=== PATIENT | male | born 1950 | race Caucasian/White ===

== ENCOUNTER 2018-04-26 14:42 | Inpatient (IN) | payer MEDICARE, OTHER ==
[~2018-04-26] VITALS: Ht 180.3 cm; Wt 102.6 kg
--- NOTE | ~2018-04-26 | EC ---
PATIENT:ZARINA ANN DATE OF SERVICE: 04/26/18 SEX: M MEDICAL RECORD: [id number] DATE OF : [birth year] LOCATION:D.M2 D.212 AGE OF PATIENT: 67 ADMISSION DATE: 04/26/18 REFERRING PHYSICIAN: INTERPRETING PHYSICIAN: NIKKY ATKINSON MD ECHOCARDIOGRAM REPORT ECHO CHARGES 4 ECHO COMPLETE Date: 05/01 CLINICAL DIAGNOSIS: EVALUATE FOR VEGETATION ECHOCARDIOGRAPHIC MEASUREMENTS (adult normal given) AC root (d.<3.7cm) 3.5 cm LV Septum d (<1.2 cm> 1.1 cm Valve Excursion 1.2 cm LV Septum (systole) 1.5 cm Left Atria (s.<4.0cm> 3.2 cm LVPW d(<1.2cm) 1.4 cm RV (d.<2.3cm) 2.6 cm LVPW (sytole) 2.2 cm LV diastole(<5.6CM) 5.4 cm MV E-F(>70mm/sec) cm LV systole 3.8 cm LVOT Diameter 2.0 cm MV exc.(>10mm) cm Est.ejection fraction (50-75%) % DOPPLER: LVIT cm/sec A 91.0 cm/sec E 176.0 cm/sec LA cm/sec RVSP 43.0 mmHg LVOT 95.0 cm/sec AOP1/2T m/s Asc. Ao 108 cm/sec RVOT 80.0 cm/sec RA cm/sec PA 124 cm/sec AV Gradient Peak 4.6 mmHg AV Mean 1.8 mmHg AV Area 3.0 cm MV Gradient Peak 4.7 mmHg MV Mean 1.6 mmHg MV Area cm COMMENTS: And Rescue Fire Fighter Crash Fire: Beni LEYOE Asbestos Worker: 4 Dr. Atkinson TAPE# PACS Pericardial Effusion Y DATE OF SERVICE: PROCEDURE: Transthoracic echocardiogram. FINDINGS: 1. Left ventricle is hyperdynamic. LV function is normal at 65%. The patient does have a bundle branch block and there is asynchronous wall motion. Inflow characteristics have what appear to be a possible pseudonormalization. 2. The left atrium is normal size, shape, and function. 3. The mitral valve has moderate eccentric mitral regurgitation. Mitral valve ECHOCARDIOGRAM REPORT [id number] ZARINA ANN is not well seen. There is no obvious vegetations or mechanical disruption. 4. The aortic valve is difficult to visualize. Grossly normal. No significant evidence of stenosis. 5. The tricuspid valve has moderate tricuspid regurgitation. The RVSP is 40 to 45 mmHg. 6. The right ventricle is normal size, shape, and function. There is right ventricular hypertrophy. 7. The right atrium is mildly enlarged. 8. Interatrial septum is thinned with the possibility of an ASD or possibly a PFO, but also maybe there is a drop out in that area of the atrial septum. It is difficult to visualize. CONCLUSION: The patient has evidence of left ventricular hypertrophy, preserved hyperdynamic LV systolic function with asynchronous wall motion secondary to a bundle branch block with moderate both tricuspid and mitral regurgitation and borderline to mildly dilated left atrium with the possibility of an atrial septal defect versus a PFO in the right clinical situation. A MICHEL may be helpful for further evaluation. No obvious vegetations were seen on this report. TRANSINT:[id number] Voice Confirmation ID: [id number] DOCUMENT ID: [id number] NIKKY ATKINSON MD at 1435 CC: [id number] DICTATION DATE: 05/03/18 1104 MACHINE CANDLE MOLDER: 05/03/18 1127 ADM IN [facility] [address] [place] [address]
--- NOTE | ~2018-04-26 | MORECARE ---
CASE MANAGEMENT DISCHARGE SUMMARY PATIENT: ZARINA ANN UNIT: [id number] ADM DATE: 04/26/18 AGE: 67 : [birth year] SEX: M ROOM/BED: D.2124 AUTHOR: CASE, EXTRUSION DIE REPAIRER PHYSICIAN: REFERRING PHYSICIAN: MAIKEL WALTERS MD DATE OF SERVICE: 04/26/18 Discharge Plan Patient Name[facility]ARINA ANN [facility] [facility] 1950 Planned Disposition: Inpatient Rehab Anticipated Discharge Date: Discharge Date: Expected LOS: Initial Reviewer: [email or web address] Initial Review Date: 05/02/2018 Generated: 05/09/18 6:53 pm Coverage Notice Reviewer: [email or web address] Rebecca Ashby Notice Issued Date-Time: 05/09/2018 13:55 Notice Type: IM Discharge Notice Notice Delivered To: Patient Relationship to Patient: Slasher Sawyer Name: Delivery Method: HAND - Hand Delivered Jacinta Days: Prior Verbal Notification: Recipient Understood Notice: Yes Recipient Signature: Yes Med Rec Note Co-signed by Attending: Coverage Notice Comment: Patient Name: ZARINA ANN Page [phone] All edits/amendments must be made on the electronic document DICTATION DATE: 05/09/181751 MARINA PORTER: 05/09/181751 RPT#: [id number] DC DATE: STATUS: ADM IN [facility] [address] [place] [address] END OF REPORT
--- NOTE | ~2018-04-26 | PN ---
PATIENT:ZARINA ANN MEDICAL RECORD: [id number] [facility] ADMISSION DATE: 04/26/18 PROGRESS NOTE DATE OF SERVICE: 05/15/2018 SUBJECTIVE: This is a 67-year-old man who was admitted to the Emergency Room for abdominal pain. He has been a chronic laxative abuser. He was also noted to have respiratory distress with coughing and he was found to have bilateral pneumonia. Of note, the patient has Parkinson's disease. The patient's abdominal pain persists and had about 3 bowel movements today. The patient's breathing is improved. There is no coughing. There is no fever. PHYSICAL EXAMINATION: GENERAL: Reveals morbidly obese man, who is in no acute distress. VITAL SIGNS: Temperature 97.9, heart rate of 79, blood pressure 118/61, saturation 97% on room air. SHEENT: Unremarkable. NECK: Supple. No throat pain. There is no tenderness. CHEST: Clear. Good airflow bilaterally. CARDIAC: Shows no jugular venous distention, murmur, or gallop. ABDOMEN: Soft and mildly tender with guarding. No rebound. Lab exam showed white count of 4.5, hemoglobin 8.8, platelet count was 183,000. Chemistries remarkable for creatinine 1.8. Chest x-ray showed persistent vascular congestion with interval improvement of bibasilar airspace disease. ASSESSMENT: 1. Pneumonia, possibly aspiration. 2. Abdominal pain, probably secondary to laxative abuse. 3. Morbid obesity. PLAN: Acidophilus orally. Continue DVT prophylaxis. Continue bronchodilators. TRANSINT:[id number] Voice Confirmation ID: [id number] DOCUMENT ID: [id number] ROMEO MERCHANT at 1307 CC: [id number] DICTATION DATE: 05/15/18 1636 COOLER DELIVERER: 05/15/18 1950 DIS IN 05/15/18 [facility] [address] [place] [address]
--- NOTE | ~2018-04-26 | CN ---
PATIENT NAME:ZARINA ANN MEDICAL RECORD: [id number] : [birth year] LOCATION:[facility].2124 ADMIT DATE: 04/26/18 ACCOUNT: [id number] CONSULTING PHYSICIAN: ROMEO MERCHANT REFERRING PHYSICIAN: MAIKEL WALTERS MD DATE OF CONSULTATION: 05/14/2018 HISTORY OF PRESENT ILLNESS: This is a 67-year-old obese man who was admitted for abdominal pain as well as coughing, some shortness of breath. The patient at times feels like she is choking. There is no fever or chills. No orthopnea or PND. No cardiac disease. On chest x-ray, the patient was found to have bilateral pneumonia and has been on antibiotics. Still has diffuse abdominal discomfort. There is no obstipation. PAST MEDICAL HISTORY: Remarkable for Parkinson disease, coronary artery stent and angioplasty. She has acid reflux disease. PAST SURGICAL HISTORY: Includes right shoulder repair. ALLERGIES: PENICILLIN. MEDICATIONS: On the patient include, Eliquis 2.5 mg t.i.d., potassium 20 mEq b.i.d., oxycodone 10 mg b.i.d., allopurinol 100 mg daily, Lipitor 10 mg at bedtime, Colace 100 mg b.i.d., polyethylene glycol 17 grams p.o. b.i.d., Flomax 0.4 mg at bedtime, Nystatin powder topical t.i.d., lisinopril 10 mg daily, amlodipine 5 mg daily, cefepime 2 grams q. 12 hours, Humulin R subQ a.c. and at bedtime. FAMILY HISTORY: Unremarkable. SOCIAL HISTORY: The patient never smoked. REVIEW OF SYSTEMS: GENERAL: The patient denies any fever or chills. HEENT: There is no headache, nasal drainage, or sore throat. CARDIOPULMONARY. The patient denies any orthopnea or PND. There is no sputum production but occasionally choking sensation. GASTROINTESTINAL: The patient has abdominal pain. No nausea or vomiting. MUSCULOSKELETAL: The patient denies any joint pains. PHYSICAL EXAMINATION: GENERAL: Physical exam reveals an obese man who in no acute distress. VITAL SIGNS: Her temperature 97.5, heart rate 71, respiratory rate 19, blood pressure 141/70, and saturation is 98%. SHEENT: Unremarkable. Nares normal. CHEST: Exam shows some coarse crackles and coughing with occasional wheeze. HEART: Exam shows no jugular venous distention, no murmur or gallop. ABDOMEN: Soft, mild diffuse tenderness with mild guarding with no rebound. EXTREMITIES: Show no clubbing, cyanosis or edema. LABORATORY DATA: CBC: White count 4.1, hemoglobin 8.9. Platelet count is 195,000. Chemistries remarkable for sodium 132, potassium 4.3, creatinine is 1.7, BUN is 32. CONSULT REPORT [id number] ZARINA ANN Chest x-ray showed increased bibasilar airspace disease with the right being worse than the left, some layering of the pleural effusion. IMPRESSION: 1. Pneumonia, parapneumonic effusion. Probably secondary to aspiration, she has mucus plugging. 2. Abdominal pain, etiology unclear. 3. Laxative abuse. 4. Diabetes mellitus type 2. 5. Morbid obesity. PLAN: 1. Empiric antibiotics. 2. Bronchodilators. 3. Mucolytics with Mucinex. If no still improvement, the patient may need Mucomyst. TRANSINT:[id number] Voice Confirmation ID: [id number] DOCUMENT ID: [id number] ROMEO MERCHANT at 1307 CC: [id number] DICTATION DATE: 05/14/182204 HAT BRIM CURLER: 05/15/18813 DIS IN 05/15/18 [facility] [address] [place] [address]
[2018-04-26 20:00] VITALS: BP 141/72
[2018-04-27] VITALS (7 sets, daily range): BP systolic 121–167; BP diastolic 57–83; BMI 45.4
[2018-04-27 06:32] LABS: BASOPHILS 0.1 % (0-2); EOSINOPHILS 3.8 % (0-7); HEMATOCRIT 29.6 % (42.0-54.0); HEMOGLOBIN 9.7 g/dL (13.5-17.5); IMMATURE GRANULOCYTES 0.1 % (0-5); LYMPHOCYTES 10.5 % (15-50); MCH 29.8 pg (26.0-34.0); MCHC 32.8 g/dL (31.0-37.0); MCV 90.8 fL (80.0-100.0); MEAN PLATELET VOLUME 9.2 fL (7.4-10.4); MONOCYTES 13.9 % (2-11); NEUTROPHILS 71.6 % (40-80); PLATELET COUNT 190 10x3/uL (130-400); RBC 3.26 10x6/uL (4.20-6.10); RDW 15.4 % (11.5-14.5); WBC 7.1 10x3/uL (4.8-10.8)
[2018-04-27 06:48] LABS: INR 1.36 (0.85-1.17); PROTIME 16.4 SECONDS (11.6-15.0)
[2018-04-27 06:55] LABS: ALBUMIN 2.3 g/dL (3.4-5.0); ANION GAP 7.5 mmol/L (8-16); BILIRUBIN - TOTAL 0.76 mg/dL (0.2-1.3); CALCIUM 9.4 mg/dL (8.5-10.1); CARBON DIOXIDE 31.3 mmol/L (21.0-32.0); CREATININE - SERUM 2.1 mg/dL (0.6-1.3); POTASSIUM - SERUM 3.8 mmol/L (3.5-5.1); PROTEIN - SERUM 6.3 g/dL (6.4-8.2)
[2018-04-27] MEDS ORDERED: ELIQUIS2.5 MG PO (13:49)
[2018-04-27] MEDS ORDERED: K-DUR20 MEQ PO (13:50)
[2018-04-27] MEDS ORDERED: OXYCONTIN10 MG PO (13:50)
[2018-04-27] MEDS ORDERED: ZYLOPRIM100 MG PO (13:51)
[2018-04-27] MEDS ORDERED: COLACE100 MG PO (13:51)
[2018-04-27] MEDS ORDERED: LIPITOR40 MG PO (13:51)
[2018-04-27] MEDS ORDERED: FOLIC ACID1 MG PO (13:52)
[2018-04-27] MEDS ORDERED: FUROSEMIDE20 MG PO (13:52)
[2018-04-27] MEDS ORDERED: NUTRISOURCE FI1 EACH PO (13:53)
[2018-04-27] MEDS ORDERED: MIRALAX17 GM PO (13:53)
[2018-04-27] MEDS ORDERED: FLOMAX0.4 MG PO (13:56)
[2018-04-27] MEDS ORDERED: SINEMET 25-1001 EACH PO (13:57)
[2018-04-27] MEDS ORDERED: LISINOPRIL10 MG PO (13:58)
[2018-04-27] MEDS ORDERED: NORVASC5 MG PO (13:58)
[2018-04-27] MEDS ORDERED: NYSTATIN1 PWD TOPICAL (13:58)
[2018-04-27] MEDS ORDERED: LEXAPRO10 MG PO (13:59)
[2018-04-27] MEDS ORDERED: MAXIPIME 2 GM/D52 G1 IV (13:59)
[2018-04-27] MEDS ORDERED: VANCOMYCIN 750750 MG IV (14:00)
[2018-04-27] MEDS ORDERED: HUMULIN R100 U/ML SC (14:02)
[2018-04-27 14:11] LABS: % SATURATION 16 % (15-55); IRON 41 ug/dl (35-150); TOTAL IRON BIND CAPACITY 250 ug/dl (260-445); UNSAT IRON BIND CAPACITY 209 ug/dl (150-375)
[2018-04-27 15:52] LABS: APPEARANCE CLOUDY (CLEAR); BILIRUBIN NEGATIVE (NEGATIVE); COLOR YELLOW (YELLOW); GLUCOSE NEGATIVE (NEGATIVE); KETONE NEGATIVE (NEGATIVE); NITRITE NEGATIVE (NEGATIVE); PH 6.5 (5.0-6.0); PROTEIN 2+ mg/dL (NEGATIVE); UROBILINOGEN NORMAL (NORMAL)
[2018-04-27 15:56] LABS: BACTERIA MODERATE /hpf (NONE SEEN); EPITHELIAL CELLS OCC /hpf (0-5); HYALINE CAST OCC /lpf (NONE SEEN); RED CELLS - URINE 0-5 /hpf (0-5)
[2018-04-27 15:57] LABS: YEAST >1+ WITH HYPHAE /hpf (NONE SEEN)
[2018-04-28 04:30] VITALS: BP 146/81
[2018-04-28 05:27] LABS: BASOPHILS 0.3 % (0-2); HEMATOCRIT 31.2 % (42.0-54.0); HEMOGLOBIN 10.1 g/dL (13.5-17.5); IMMATURE GRANULOCYTES 0.1 % (0-5); LYMPHOCYTES 14.2 % (15-50); MCH 29.5 pg (26.0-34.0); MCHC 32.4 g/dL (31.0-37.0); MCV 91.2 fL (80.0-100.0); MONOCYTES 12.9 % (2-11); NEUTROPHILS 66.5 % (40-80); PLATELET COUNT 228 10x3/uL (130-400); RBC 3.42 10x6/uL (4.20-6.10); RDW 15.4 % (11.5-14.5); WBC 7.7 10x3/uL (4.8-10.8)
[2018-04-28 05:39] LABS: ANION GAP 6.5 mmol/L (8-16); CALCIUM 9.1 mg/dL (8.5-10.1); CARBON DIOXIDE 33.3 mmol/L (21.0-32.0); CREATININE - SERUM 1.9 mg/dL (0.6-1.3); POTASSIUM - SERUM 3.8 mmol/L (3.5-5.1)
[2018-04-28 08:57] VITALS: BP 128/80
[2018-04-28 16:08] VITALS: BP 127/62
[2018-04-28 20:00] VITALS: BP 141/84
[2018-04-29] VITALS: BP 145/67
[2018-04-29 04:00] VITALS: BP 155/69
[2018-04-29 05:31] LABS: BASOPHILS 0.2 % (0-2); EOSINOPHILS 6.8 % (0-7); HEMATOCRIT 29.3 % (42.0-54.0); HEMOGLOBIN 9.4 g/dL (13.5-17.5); IMMATURE GRANULOCYTES 0.2 % (0-5); LYMPHOCYTES 9.8 % (15-50); MCH 29.2 pg (26.0-34.0); MCHC 32.1 g/dL (31.0-37.0); MEAN PLATELET VOLUME 9.3 fL (7.4-10.4); MONOCYTES 16.5 % (2-11); NEUTROPHILS 66.5 % (40-80); PLATELET COUNT 184 10x3/uL (130-400); RBC 3.22 10x6/uL (4.20-6.10); RDW 15.2 % (11.5-14.5); WBC 6.3 10x3/uL (4.8-10.8)
[2018-04-29 05:52] LABS: ANION GAP 5.7 mmol/L (8-16); CALCIUM 8.7 mg/dL (8.5-10.1); CREATININE - SERUM 1.9 mg/dL (0.6-1.3); POTASSIUM - SERUM 3.7 mmol/L (3.5-5.1)
[2018-04-29 08:54] VITALS: BP 119/66
[2018-04-29 12:01] VITALS: BP 144/60
[2018-04-29 14:58] VITALS: BP 140/67
[2018-04-29 20:48] VITALS: BP 141/67
[2018-04-30 06:04] LABS: BASOPHILS 0.1 % (0-2); EOSINOPHILS 7.1 % (0-7); HEMATOCRIT 30.1 % (42.0-54.0); HEMOGLOBIN 9.7 g/dL (13.5-17.5); IMMATURE GRANULOCYTES 0.4 % (0-5); LYMPHOCYTES 12.9 % (15-50); MCH 29.2 pg (26.0-34.0); MCHC 32.2 g/dL (31.0-37.0); MCV 90.7 fL (80.0-100.0); MEAN PLATELET VOLUME 9.1 fL (7.4-10.4); MONOCYTES 14.4 % (2-11); NEUTROPHILS 65.1 % (40-80); PLATELET COUNT 155 10x3/uL (130-400); RBC 3.32 10x6/uL (4.20-6.10); RDW 15.1 % (11.5-14.5); WBC 6.9 10x3/uL (4.8-10.8)
[2018-04-30 06:23] LABS: ANION GAP 3.6 mmol/L (8-16); CALCIUM 8.9 mg/dL (8.5-10.1); CARBON DIOXIDE 32.3 mmol/L (21.0-32.0); POTASSIUM - SERUM 3.9 mmol/L (3.5-5.1)
[2018-04-30 06:57] VITALS: BP 177/75
[2018-04-30 08:03] VITALS: BP 138/76
[2018-04-30 09:19] LABS: FOLATE (FOLIC ACID) - SERUM >20.0 ng/mL (>3.0)
[2018-04-30 11:20] VITALS: BP 122/68
[2018-04-30 15:22] VITALS: BP 133/66
[2018-04-30 20:10] VITALS: BP 143/78
[2018-05-01 01:10] VITALS: BP 174/77
[2018-05-01 05:20] VITALS: BP 148/75
[2018-05-01 08:10] LABS: BASOPHILS 0.1 % (0-2); EOSINOPHILS 7.9 % (0-7); HEMATOCRIT 30.2 % (42.0-54.0); HEMOGLOBIN 9.8 g/dL (13.5-17.5); IMMATURE GRANULOCYTES 0.4 % (0-5); LYMPHOCYTES 9.5 % (15-50); MCH 29.4 pg (26.0-34.0); MCHC 32.5 g/dL (31.0-37.0); MCV 90.7 fL (80.0-100.0); MEAN PLATELET VOLUME 9.1 fL (7.4-10.4); MONOCYTES 12.1 % (2-11); RBC 3.33 10x6/uL (4.20-6.10); WBC 7.5 10x3/uL (4.8-10.8)
[2018-05-01 08:15] VITALS: BP 143/72
[2018-05-01 08:16] LABS: PLATELET COUNT 203 10x3/uL (130-400)
[2018-05-01 08:31] LABS: ANION GAP 7.9 mmol/L (8-16); CALCIUM 8.8 mg/dL (8.5-10.1); CREATININE - SERUM 1.7 mg/dL (0.6-1.3); POTASSIUM - SERUM 3.9 mmol/L (3.5-5.1)
[2018-05-01 11:36] VITALS: BP 151/69
[2018-05-01 15:56] VITALS: BP 148/63
[2018-05-01 21:52] VITALS: BP 132/73
[2018-05-02 01:17] VITALS: BP 147/75
[2018-05-02 04:00] VITALS: BP 147/78
[2018-05-02 06:06] LABS: BASOPHILS 0.4 % (0-2); EOSINOPHILS 10.6 % (0-7); HEMATOCRIT 31.5 % (42.0-54.0); HEMOGLOBIN 10.2 g/dL (13.5-17.5); IMMATURE GRANULOCYTES 0.4 % (0-5); LYMPHOCYTES 10.5 % (15-50); MCH 29.3 pg (26.0-34.0); MCHC 32.4 g/dL (31.0-37.0); MCV 90.5 fL (80.0-100.0); MEAN PLATELET VOLUME 8.8 fL (7.4-10.4); MONOCYTES 10.2 % (2-11); NEUTROPHILS 67.9 % (40-80); PLATELET COUNT 195 10x3/uL (130-400); RBC 3.48 10x6/uL (4.20-6.10); RDW 15.2 % (11.5-14.5); WBC 7.7 10x3/uL (4.8-10.8)
[2018-05-02 06:24] LABS: ANION GAP 10.3 mmol/L (8-16); CALCIUM 9.2 mg/dL (8.5-10.1); CARBON DIOXIDE 27.4 mmol/L (21.0-32.0); CREATININE - SERUM 1.7 mg/dL (0.6-1.3); POTASSIUM - SERUM 3.7 mmol/L (3.5-5.1)
[2018-05-02 06:37] LABS: AMYLASE - SERUM 37 U/L (25-115); LIPASE 259 U/L (73-393)
[2018-05-02 08:22] VITALS: BP 158/81
[2018-05-02 15:57] VITALS: BP 115/66
[2018-05-02 21:32] VITALS: BP 136/75
[2018-05-03 01:30] VITALS: BP 136/76
[2018-05-03 06:03] VITALS: BP 143/69
[2018-05-03 08:26] VITALS: BP 128/56
[2018-05-03 12:27] VITALS: BP 149/73
[2018-05-03 12:30] LABS: BASOPHILS 0.3 % (0-2); EOSINOPHILS 10.7 % (0-7); HEMATOCRIT 32.8 % (42.0-54.0); HEMOGLOBIN 10.4 g/dL (13.5-17.5); IMMATURE GRANULOCYTES 0.2 % (0-5); LYMPHOCYTES 8.7 % (15-50); MCH 29.6 pg (26.0-34.0); MCHC 31.7 g/dL (31.0-37.0); MEAN PLATELET VOLUME 9.4 fL (7.4-10.4); MONOCYTES 11.5 % (2-11); NEUTROPHILS 68.6 % (40-80); RBC 3.51 10x6/uL (4.20-6.10); RDW 15.2 % (11.5-14.5); WBC 8.8 10x3/uL (4.8-10.8)
[2018-05-03 12:39] LABS: ALBUMIN 2.5 g/dL (3.4-5.0); ANION GAP 5.9 mmol/L (8-16); BILIRUBIN - TOTAL 0.79 mg/dL (0.2-1.3); CALCIUM 9.1 mg/dL (8.5-10.1); CREATININE - SERUM 1.6 mg/dL (0.6-1.3); POTASSIUM - SERUM 3.9 mmol/L (3.5-5.1); PROTEIN - SERUM 6.7 g/dL (6.4-8.2)
[2018-05-03 12:42] LABS: MCV 93.4 fL (80.0-100.0); PLATELET COUNT 236 10x3/uL (130-400)
[2018-05-03 16:40] VITALS: BP 138/67
[2018-05-03 21:17] VITALS: BP 141/73
[2018-05-04 01:26] VITALS: BP 141/77
[2018-05-04 05:39] VITALS: BP 148/78
[2018-05-04 08:00] VITALS: BP 138/94
[2018-05-04 08:57] VITALS: BP 148/61
[2018-05-04 11:51] VITALS: BP 136/69
[2018-05-04 15:51] VITALS: BP 132/76
[2018-05-05] VITALS: BP 142/75
[2018-05-05 04:00] VITALS: BP 138/77
[2018-05-05 06:25] LABS: BASOPHILS 0.3 % (0-2); EOSINOPHILS 8.8 % (0-7); HEMATOCRIT 31.6 % (42.0-54.0); HEMOGLOBIN 10.4 g/dL (13.5-17.5); IMMATURE GRANULOCYTES 0.3 % (0-5); LYMPHOCYTES 15.5 % (15-50); MCH 29.5 pg (26.0-34.0); MCHC 32.9 g/dL (31.0-37.0); MCV 89.5 fL (80.0-100.0); MEAN PLATELET VOLUME 9.2 fL (7.4-10.4); MONOCYTES 10.8 % (2-11); NEUTROPHILS 64.3 % (40-80); PLATELET COUNT 205 10x3/uL (130-400); RBC 3.53 10x6/uL (4.20-6.10); RDW 14.6 % (11.5-14.5); WBC 6.8 10x3/uL (4.8-10.8)
[2018-05-05 06:41] LABS: ANION GAP 8.5 mmol/L (8-16); CALCIUM 9.1 mg/dL (8.5-10.1); CREATININE - SERUM 1.7 mg/dL (0.6-1.3); POTASSIUM - SERUM 3.5 mmol/L (3.5-5.1)
[2018-05-05 08:05] VITALS: BP 122/64
[2018-05-05 11:18] VITALS: BP 126/69
[2018-05-05 15:14] VITALS: BP 119/71
[2018-05-05 20:30] VITALS: BP 120/74
[2018-05-06 00:30] VITALS: BP 118/70
[2018-05-06 04:30] VITALS: BP 153/79
[2018-05-06 04:38] LABS: BASOPHILS 0.2 % (0-2); HEMATOCRIT 29.3 % (42.0-54.0); HEMOGLOBIN 9.5 g/dL (13.5-17.5); IMMATURE GRANULOCYTES 0.3 % (0-5); MCH 29.1 pg (26.0-34.0); MCHC 32.4 g/dL (31.0-37.0); MCV 89.6 fL (80.0-100.0); MEAN PLATELET VOLUME 8.7 fL (7.4-10.4); MONOCYTES 10.7 % (2-11); NEUTROPHILS 62.8 % (40-80); PLATELET COUNT 192 10x3/uL (130-400); RBC 3.27 10x6/uL (4.20-6.10); RDW 14.7 % (11.5-14.5); WBC 5.9 10x3/uL (4.8-10.8)
[2018-05-06 04:58] LABS: ANION GAP 5.3 mmol/L (8-16); CALCIUM 8.9 mg/dL (8.5-10.1); CARBON DIOXIDE 31.2 mmol/L (21.0-32.0); CREATININE - SERUM 1.6 mg/dL (0.6-1.3); POTASSIUM - SERUM 3.5 mmol/L (3.5-5.1)
[2018-05-06 08:46] VITALS: BP 149/80
[2018-05-06 11:45] VITALS: BP 148/80
[2018-05-06 15:59] VITALS: BP 145/81
[2018-05-06 20:00] VITALS: BP 142/78
[2018-05-07] VITALS: BP 153/86
[2018-05-07 06:00] LABS: BASOPHILS 0.4 % (0-2); EOSINOPHILS 10.6 % (0-7); HEMATOCRIT 31.2 % (42.0-54.0); HEMOGLOBIN 10.1 g/dL (13.5-17.5); IMMATURE GRANULOCYTES 0.2 % (0-5); LYMPHOCYTES 18.9 % (15-50); MCH 28.7 pg (26.0-34.0); MCHC 32.4 g/dL (31.0-37.0); MCV 88.6 fL (80.0-100.0); MONOCYTES 10.7 % (2-11); NEUTROPHILS 59.2 % (40-80); PLATELET COUNT 199 10x3/uL (130-400); RBC 3.52 10x6/uL (4.20-6.10); RDW 14.4 % (11.5-14.5); WBC 5.5 10x3/uL (4.8-10.8)
[2018-05-07 06:18] LABS: ANION GAP 6.5 mmol/L (8-16); CALCIUM 8.8 mg/dL (8.5-10.1); CARBON DIOXIDE 30.9 mmol/L (21.0-32.0); CREATININE - SERUM 1.5 mg/dL (0.6-1.3); POTASSIUM - SERUM 3.4 mmol/L (3.5-5.1)
[2018-05-07 06:37] VITALS: BP 144/72
[2018-05-07 07:30] VITALS: BP 143/81
[2018-05-07 11:00] VITALS: BP 135/81
[2018-05-07 14:04] VITALS: Ht 180.3 cm; Wt 102.6 kg
[2018-05-07 15:47] VITALS: BP 136/73
[2018-05-07 20:00] VITALS: BP 126/70
[2018-05-08] VITALS: BP 137/76
[2018-05-08 04:00] VITALS: BP 143/82
[2018-05-08 05:44] LABS: BASOPHILS 0.2 % (0-2); EOSINOPHILS 11.2 % (0-7); HEMATOCRIT 30.4 % (42.0-54.0); HEMOGLOBIN 9.9 g/dL (13.5-17.5); IMMATURE GRANULOCYTES 0.5 % (0-5); LYMPHOCYTES 15.7 % (15-50); MCH 28.9 pg (26.0-34.0); MCHC 32.6 g/dL (31.0-37.0); MCV 88.9 fL (80.0-100.0); NEUTROPHILS 62.4 % (40-80); PLATELET COUNT 204 10x3/uL (130-400); RBC 3.42 10x6/uL (4.20-6.10); RDW 14.6 % (11.5-14.5); WBC 6.4 10x3/uL (4.8-10.8)
[2018-05-08 05:50] LABS: ANION GAP 7.6 mmol/L (8-16); CALCIUM 8.7 mg/dL (8.5-10.1); CREATININE - SERUM 1.6 mg/dL (0.6-1.3); POTASSIUM - SERUM 3.6 mmol/L (3.5-5.1)
[2018-05-08 07:57] VITALS: BP 129/71
[2018-05-08 20:06] VITALS: BP 147/72
[2018-05-09] VITALS: BP 133/73
[2018-05-09 04:00] VITALS: BP 143/78
[2018-05-09 06:19] LABS: BASOPHILS 0.2 % (0-2); EOSINOPHILS 8.5 % (0-7); HEMATOCRIT 31.8 % (42.0-54.0); HEMOGLOBIN 10.3 g/dL (13.5-17.5); IMMATURE GRANULOCYTES 0.2 % (0-5); LYMPHOCYTES 15.9 % (15-50); MCH 28.9 pg (26.0-34.0); MCHC 32.4 g/dL (31.0-37.0); MCV 89.1 fL (80.0-100.0); MEAN PLATELET VOLUME 9.1 fL (7.4-10.4); MONOCYTES 11.9 % (2-11); NEUTROPHILS 63.3 % (40-80); PLATELET COUNT 218 10x3/uL (130-400); RBC 3.57 10x6/uL (4.20-6.10); RDW 14.7 % (11.5-14.5); WBC 5.8 10x3/uL (4.8-10.8)
[2018-05-09 06:36] LABS: CALCIUM 8.7 mg/dL (8.5-10.1); CREATININE - SERUM 1.7 mg/dL (0.6-1.3)
[2018-05-09 07:43] VITALS: BP 148/86
[2018-05-09 11:40] VITALS: BP 151/73
[2018-05-09 15:53] VITALS: BP 146/78
[2018-05-09 20:33] VITALS: BP 135/77
[2018-05-10] VITALS: BP 134/69
[2018-05-10 05:36] VITALS: BP 137/70
[2018-05-10 05:57] LABS: BASOPHILS 0.4 % (0-2); EOSINOPHILS 5.4 % (0-7); HEMATOCRIT 31.1 % (42.0-54.0); HEMOGLOBIN 10.1 g/dL (13.5-17.5); IMMATURE GRANULOCYTES 0.3 % (0-5); LYMPHOCYTES 14.7 % (15-50); MCH 28.9 pg (26.0-34.0); MCHC 32.5 g/dL (31.0-37.0); MCV 88.9 fL (80.0-100.0); MEAN PLATELET VOLUME 9.2 fL (7.4-10.4); MONOCYTES 12.3 % (2-11); NEUTROPHILS 66.9 % (40-80); PLATELET COUNT 212 10x3/uL (130-400); RDW 14.8 % (11.5-14.5)
[2018-05-10 06:03] LABS: WBC 7.5 10x3/uL (4.8-10.8)
[2018-05-10 06:24] LABS: ANION GAP 11.2 mmol/L (8-16); CALCIUM 8.9 mg/dL (8.5-10.1); CARBON DIOXIDE 29.8 mmol/L (21.0-32.0); CREATININE - SERUM 1.7 mg/dL (0.6-1.3)
[2018-05-10 07:50] VITALS: BP 149/66
[2018-05-10 11:12] VITALS: BP 152/63
[2018-05-10 16:09] VITALS: BP 144/66
[2018-05-10 20:00] VITALS: BP 126/69
[2018-05-11] VITALS: BP 133/68
[2018-05-11 04:00] VITALS: BP 136/76
[2018-05-11 05:36] LABS: BASOPHILS 0.1 % (0-2); EOSINOPHILS 5.1 % (0-7); HEMATOCRIT 29.6 % (42.0-54.0); HEMOGLOBIN 9.6 g/dL (13.5-17.5); IMMATURE GRANULOCYTES 0.3 % (0-5); LYMPHOCYTES 14.9 % (15-50); MCH 28.8 pg (26.0-34.0); MCHC 32.4 g/dL (31.0-37.0); MCV 88.9 fL (80.0-100.0); MEAN PLATELET VOLUME 8.7 fL (7.4-10.4); MONOCYTES 12.5 % (2-11); NEUTROPHILS 67.1 % (40-80); PLATELET COUNT 191 10x3/uL (130-400); RBC 3.33 10x6/uL (4.20-6.10); RDW 14.7 % (11.5-14.5); WBC 7.9 10x3/uL (4.8-10.8)
[2018-05-11 06:19] LABS: ANION GAP 8.6 mmol/L (8-16); CALCIUM 8.8 mg/dL (8.5-10.1); CARBON DIOXIDE 31.5 mmol/L (21.0-32.0); CREATININE - SERUM 1.7 mg/dL (0.6-1.3); POTASSIUM - SERUM 4.1 mmol/L (3.5-5.1)
[2018-05-11 07:44] VITALS: BP 126/69
[2018-05-11 11:23] VITALS: BP 125/67
[2018-05-11 14:56] VITALS: BP 129/74
[2018-05-11 20:30] VITALS: BP 126/73
[2018-05-12 04:30] VITALS: BP 133/95
[2018-05-12 05:50] LABS: BASOPHILS 0.1 % (0-2); EOSINOPHILS 6.8 % (0-7); HEMATOCRIT 28.3 % (42.0-54.0); HEMOGLOBIN 9.2 g/dL (13.5-17.5); IMMATURE GRANULOCYTES 0.4 % (0-5); LYMPHOCYTES 15.6 % (15-50); MCHC 32.5 g/dL (31.0-37.0); MCV 89.3 fL (80.0-100.0); MEAN PLATELET VOLUME 8.8 fL (7.4-10.4); MONOCYTES 13.2 % (2-11); NEUTROPHILS 63.9 % (40-80); PLATELET COUNT 204 10x3/uL (130-400); RBC 3.17 10x6/uL (4.20-6.10); RDW 14.7 % (11.5-14.5); WBC 6.9 10x3/uL (4.8-10.8)
[2018-05-12 06:05] LABS: ANION GAP 9.3 mmol/L (8-16); CALCIUM 8.8 mg/dL (8.5-10.1); CARBON DIOXIDE 30.7 mmol/L (21.0-32.0); CREATININE - SERUM 1.8 mg/dL (0.6-1.3)
[2018-05-12 07:55] VITALS: BP 132/76
[2018-05-12 11:33] VITALS: BP 126/75
[2018-05-12 15:30] VITALS: BP 121/66
[2018-05-12 21:54] VITALS: BP 99/69
[2018-05-13 02:13] VITALS: BP 124/69
[2018-05-13 05:26] VITALS: BP 125/67
[2018-05-13 05:58] LABS: BASOPHILS 0.3 % (0-2); EOSINOPHILS 3.8 % (0-7); HEMATOCRIT 27.4 % (42.0-54.0); HEMOGLOBIN 8.9 g/dL (13.5-17.5); IMMATURE GRANULOCYTES 0.2 % (0-5); LYMPHOCYTES 12.6 % (15-50); MCHC 32.5 g/dL (31.0-37.0); MCV 89.3 fL (80.0-100.0); MONOCYTES 12.6 % (2-11); NEUTROPHILS 70.5 % (40-80); PLATELET COUNT 210 10x3/uL (130-400); RBC 3.07 10x6/uL (4.20-6.10); WBC 6.3 10x3/uL (4.8-10.8)
[2018-05-13 06:40] LABS: ANION GAP 10.1 mmol/L (8-16); CALCIUM 8.8 mg/dL (8.5-10.1); CARBON DIOXIDE 28.2 mmol/L (21.0-32.0); CREATININE - SERUM 1.8 mg/dL (0.6-1.3); POTASSIUM - SERUM 4.3 mmol/L (3.5-5.1)
[2018-05-13 20:05] VITALS: BP 138/80
[2018-05-14 02:55] LABS: APPEARANCE CLEAR (CLEAR); BILIRUBIN NEGATIVE (NEGATIVE); COLOR YELLOW (YELLOW); GLUCOSE NEGATIVE (NEGATIVE); KETONE NEGATIVE (NEGATIVE); NITRITE NEGATIVE (NEGATIVE); PROTEIN TRACE mg/dL (NEGATIVE); SPECIFIC GRAVITY 1.005 (1.005-1.020); UROBILINOGEN NORMAL (NORMAL)
[2018-05-14 02:56] LABS: BACTERIA FEW /hpf (NONE SEEN); EPITHELIAL CELLS 0-5 /hpf (0-5); RED CELLS - URINE 0-5 /hpf (0-5); WHITE CELLS - URINE 0-5 /hpf (0-5)
[2018-05-14 04:54] LABS: BASOPHILS 0.5 % (0-2); EOSINOPHILS 7.1 % (0-7); HEMOGLOBIN 8.9 g/dL (13.5-17.5); MCH 29.5 pg (26.0-34.0); MCV 89.4 fL (80.0-100.0); MEAN PLATELET VOLUME 8.7 fL (7.4-10.4); MONOCYTES 12.7 % (2-11); NEUTROPHILS 59.7 % (40-80); PLATELET COUNT 195 10x3/uL (130-400); RBC 3.02 10x6/uL (4.20-6.10); RDW 14.9 % (11.5-14.5); WBC 4.1 10x3/uL (4.8-10.8)
[2018-05-14 05:17] VITALS: BP 130/73
[2018-05-14 05:24] LABS: ANION GAP 7.9 mmol/L (8-16); CALCIUM 9.1 mg/dL (8.5-10.1); CARBON DIOXIDE 31.4 mmol/L (21.0-32.0); CREATININE - SERUM 1.7 mg/dL (0.6-1.3); POTASSIUM - SERUM 4.3 mmol/L (3.5-5.1)
[2018-05-14 18:50] VITALS: BP 128/71
[2018-05-14 20:31] VITALS: BP 141/70
[2018-05-15] VITALS: BP 132/66
[2018-05-15 04:00] VITALS: BP 141/73
[2018-05-15 07:06] LABS: BASOPHILS 0.7 % (0-2); HEMATOCRIT 26.7 % (42.0-54.0); HEMOGLOBIN 8.8 g/dL (13.5-17.5); IMMATURE GRANULOCYTES 0.2 % (0-5); LYMPHOCYTES 18.3 % (15-50); MCV 88.1 fL (80.0-100.0); MEAN PLATELET VOLUME 8.9 fL (7.4-10.4); MONOCYTES 14.9 % (2-11); NEUTROPHILS 59.9 % (40-80); PLATELET COUNT 193 10x3/uL (130-400); RBC 3.03 10x6/uL (4.20-6.10); RDW 14.7 % (11.5-14.5); WBC 4.5 10x3/uL (4.8-10.8)
[2018-05-15 07:49] LABS: ALBUMIN 2.5 g/dL (3.4-5.0); ANION GAP 9.4 mmol/L (8-16); BILIRUBIN - TOTAL 0.85 mg/dL (0.2-1.3); CALCIUM 8.8 mg/dL (8.5-10.1); CARBON DIOXIDE 29.6 mmol/L (21.0-32.0); CREATININE - SERUM 1.8 mg/dL (0.6-1.3); MAGNESIUM - SERUM 1.6 mg/dL (1.8-2.4); PROTEIN - SERUM 6.2 g/dL (6.4-8.2)
[2018-05-15 08:52] VITALS: BP 127/71
[2018-05-15] MEDS ORDERED: DIFLUCAN100 MG PO (11:03)
[2018-05-15] MEDS ORDERED: FLAGYL500 MG PO (11:04)
[2018-05-15] MEDS ORDERED: IPRAT-ALBUT 0.5-3 ML INH (11:04)
[2018-05-15] MEDS ORDERED: VANCOMYCIN250 MG/51 PO (11:04)
[2018-05-15] MEDS ORDERED: LIBRAX CAPSULE1 CAP PO (11:04)
[2018-05-15] MEDS ORDERED: MUCINEX600 MG PO (11:05)
[2018-05-15] MEDS ORDERED: FLORAJEN3 CAPS460 MG PO (11:05)
[2018-05-15] MEDS ORDERED: CALMOSEPTINE OI71 GM TOPICAL (11:06)
[2018-05-15] MEDS ORDERED: GAS-X80 MG PO (11:06)
[2018-05-15] MEDS ORDERED: MELATONIN 3 MG1 TAB PO (11:06)
[2018-05-15 11:41] VITALS: BP 135/61
[2018-05-15 15:31] VITALS: BP 118/61
[2018-05-15 17:17] LABS: BASOPHILS 0.6 % (0-2); EOSINOPHILS 1.7 % (0-7); HEMATOCRIT 27.8 % (42.0-54.0); HEMOGLOBIN 9.1 g/dL (13.5-17.5); LYMPHOCYTES 13.4 % (15-50); MCHC 32.7 g/dL (31.0-37.0); MCV 88.5 fL (80.0-100.0); MEAN PLATELET VOLUME 8.7 fL (7.4-10.4); MONOCYTES 13.6 % (2-11); NEUTROPHILS 70.7 % (40-80); PLATELET COUNT 177 10x3/uL (130-400); RBC 3.14 10x6/uL (4.20-6.10); RDW 14.7 % (11.5-14.5); WBC 4.6 10x3/uL (4.8-10.8)
[2018-05-15 18:04] LABS: ALBUMIN 2.8 g/dL (3.4-5.0); ANION GAP 14.1 mmol/L (8-16); BILIRUBIN - TOTAL 0.62 mg/dL (0.2-1.3); CALCIUM 8.8 mg/dL (8.5-10.1); CREATININE - SERUM 1.8 mg/dL (0.6-1.3); POTASSIUM - SERUM 4.1 mmol/L (3.5-5.1); PROTEIN - SERUM 6.3 g/dL (6.4-8.2)
== END 2018-05-15 19:15 | DRG 867 ==
LOC: D.M2 14:42
PROVIDERS: Family Medicine; Internal Medicine; Internal Medicine Gastroenterology; Internal Medicine Nephrology
DX: B49 Unspecified mycosis (principal); J18.9 Pneumonia, unspecified organism; N17.9 Acute kidney failure, unspecified; K56.7 Ileus, unspecified; Z68.42 Body mass index [BMI] 45.0-49.9, adult; A04.72 Enterocolitis due to Clostridium difficile, not specified as recurrent; K57.92 Diverticulitis of intestine, part unspecified, without perforation or abscess without bleeding; K59.00 Constipation, unspecified; I25.10 Atherosclerotic heart disease of native coronary artery without angina pectoris; I10 Essential (primary) hypertension; E11.9 Type 2 diabetes mellitus without complications; G20 Parkinson's disease; I48.91 Unspecified atrial fibrillation; K21.9 Gastro-esophageal reflux disease without esophagitis; D64.9 Anemia, unspecified; R78.89 Finding of other specified substances, not normally found in blood; E66.01 Morbid (severe) obesity due to excess calories; Z95.0 Presence of cardiac pacemaker; Z95.5 Presence of coronary angioplasty implant and graft

== ENCOUNTER 2018-05-15 19:15 | Inpatient (IN) | payer MEDICARE, OTHER ==
[~2018-05-15] VITALS: Ht 180.3 cm; Wt 99.8 kg
--- NOTE | ~2018-05-15 | RHP ---
PATIENT: ZARINA ANN MEDICAL RECORD: [id number] ACCOUNT: [id number] LOCATION:[facility]1109 : [birth year] ADMISSION DATE: 05/15/18 REHABILITATION HISTORY AND PHYSICAL EXAMINATION POST ADMISSION PHYSICIAN EXAMINATION DATE OF ADMISSION TO THE REHAB: 05/15/2018 ADMITTING DIAGNOSIS: Disuse myopathy. HISTORY OF PRESENT ILLNESS: The patient is admitted to inpatient rehab for neurological condition of disuse myopathy. He is a 67-year-old morbidly obese gentleman with history of hypertension, coronary artery disease status post stent placement, AFib status post pacemaker placement, diabetes, Parkinson's, gallstones and gastroesophageal reflux disease, who presented to the ER from the [facility]. He has got CHF. Per request of the patient's daughter, who complained of the patient having abdominal pain approximately 3-4 weeks prior to his acute hospital episode on 04/26/18. The patient fell at home later and was noted to have a right swollen shoulder, in which a joint aspirate was consistent with septic joint. He was then transferred to [facility] where an antibiotic spacer was placed. The patient was transferred to the [facility] for antibiotic therapy and plans to return [facility] for additional surgery on 06/21/18. He had no stools a week prior to his acute hospital admit. He has a rash noted on his abdominal folds, in his axilla. He was found to have constipation, which is resolved. Given his acute hospital stay, he was found to have C. diff and received treatment for this. He is on oxygen at 2 liters per nasal cannula. He has a Aguiar catheter and on telemetry. He lives at home with his son, was moderately independent with his mobility and was independent with his ADLs prior to his shoulder surgery. I spoke to his daughter via telephone and felt like the patient would participate in the required 3 hours of therapy. The patient is very eager to return back to his prior level of functioning. He is currently max assist to total assist for his mobility and min assist to total assist for ADLs. Plan is to be able to return home with his son as close to his prior level of function as possible before returning to [facility] on 06/21/18 for repair of his shoulder. COMORBIDITIES: Include CDT, morbid obesity, GI bleed, candidemia, bilateral pleural effusions, recently septic joint of his shoulder, acute kidney injury, normocytic anemia, constipation, hypertension, coronary artery disease, atrial fib, diabetes, Parkinson's, lower abdominal pain, extensive chronic diverticulosis, pneumonia. PAST MEDICAL HISTORY: Significant for Parkinson's, diabetes, pacemaker placement, stents and angioplasty, acid reflux, arthritis, chronic back pain and gallstones. PAST SURGICAL HISTORY: Includes right shoulder surgery, pacemaker placement and left hip arthroplasty. ALLERGIES: PENICILLIN. CURRENT MEDICATIONS: He is on Sinemet 25/100 and he is on 3 tabs 5 times daily, lisinopril 20 mg daily, Floranex 460 mg daily, furosemide 60 mg daily, folic acid 1 mg daily. He is on fluconazole 400 mg daily. He will be on Lexapro 10 mg daily, Colace 100 mg daily, amlodipine 10 mg daily, allopurinol 100 mg daily, HISTORY AND PHYSICAL [id number] ZARINA ANN vancomycin 250 q.i.d. of the oral solution. He is on Flomax 0.4 mg at bedtime, melatonin 6 mg at bedtime. He is on metronidazole 500 mg t.i.d., nystatin powder topically t.i.d., oxycodone ER 10 mg b.i.d. He is on MiraLax 17 g in 8 ounces of water daily. He is on potassium chloride 20 mEq daily. He is on Mylanta as needed. He is on a low resistant sliding scale insulin. He is on Benefiber 1 packet b.i.d., Mucinex 1200 mg b.i.d. He is on Librax 1 cap b.i.d. p.r.n., atorvastatin 40 mg at bedtime and Eliquis 2.5 mg b.i.d. HABITS: No current alcohol or tobacco use. FAMILY HISTORY: Noncontributory. SOCIAL HISTORY: The patient hopes to return back home and get back to his prior level of function before going in and having shoulder surgery done. REVIEW OF SYSTEMS: GENERAL: Does complain of some weakness and fatigue. HEENT: Denies cold, cough, or congestion. CARDIOVASCULAR: Denies chest pain. PHYSICAL EXAMINATION: VITAL SIGNS: Stable, afebrile. GENERAL: Elderly gentleman in no acute distress, alert upon exam. HEENT: Normocephalic and atraumatic. Mucosa moist. NECK: Supple. No lymphadenopathy. LUNGS: Clear in upper samano. HEART: Irregular rate and rhythm. ABDOMEN: Benign. He does have a little bit of tenderness, but no rebound, no guarding. EXTREMITIES: No clubbing, cyanosis or edema. NEUROLOGIC: Does have noted weakness. LABORATORY DATA: Admit labs showed white count of 4.0, H&H of 9 and 27.4 and platelet count was noted to be 184. His sodium is 133, potassium 4.2, BUN and creatinine of 31 and 1.7, and blood sugar is noted to be 116. Admit UA did show trace blood and few bacteria. ASSESSMENT: This is a 67-year-old gentleman admitted to the rehab with a working diagnosis of disuse myopathy secondary to his prolonged hospital stay. The patient has potential to make improvement. We instituted the following multidisciplinary therapies including but not limited to physical, occupational, respiratory, speech, nutritional services, prosthetics and orthotics. Given his complex medical condition and risk for more complications, rehabilitation services cannot be provided at a lower level of care such as a skilled nurse facility. PLAN: 1. Admit to [facility] for intensive inpatient therapy to include the following disciplines: A. Physical therapy to improve gait, all transfer skills and bed mobility to a modified independent level. B. Occupational therapy to improve activities of daily living to a modified independent level. C. Case management to assist with discharge planning and placement options. D. Nutrition to assist with nutritional needs. HISTORY AND PHYSICAL [id number] ZARINA ANN. Rehabilitation nursing to assist in monitoring the patient's underlying medical conditions and to assist with any type of bowel or bladder management. 2. The patient's current medications and medical care will be continued. 3. The patient will be placed on standard fall precautions. 4. The patient's estimated length of stay is approximately 7-10 days. 5. We will discuss this patient during care team staff meeting this week. TRANSINT:[id number] Voice Confirmation ID: [id number] DOCUMENT ID: [id number] BANG notes whether there has been none or any medical/functional change since admission: - No change since prescreen. BANG attests patient continues to be appropriate for IRF: - Contiues to be appropriate. HALEY HUERTAS MD at 1758 CC: [id number] DICTATION DATE: 05/16/18 5201 SHIP'S SURVEYOR: 05/16/18 1633 ADM IN [facility] [address] [place] [id number]
[2018-05-15 19:00] VITALS: BP 132/70
[~2018-05-15 19:15] MED LIST: CALMOSEPTINE OI71 GM TOPICAL; COLACE100 MG PO; DIFLUCAN100 MG PO; ELIQUIS2.5 MG PO; FLAGYL500 MG PO; FLOMAX0.4 MG PO; FLORAJEN3 CAPS460 MG PO; FOLIC ACID1 MG PO; FUROSEMIDE20 MG PO; GAS-X80 MG PO; HUMULIN R100 U/ML SC; IPRAT-ALBUT 0.5-3 ML INH; K-DUR20 MEQ PO; LEXAPRO10 MG PO; LIBRAX CAPSULE1 CAP PO; LIPITOR40 MG PO; LISINOPRIL10 MG PO; MAXIPIME 2 GM/D52 G1 IV; MELATONIN 3 MG1 TAB PO; MIRALAX17 GM PO; MUCINEX600 MG PO; NORVASC5 MG PO; NUTRISOURCE FI1 EACH PO; NYSTATIN1 PWD TOPICAL; OXYCONTIN10 MG PO; SINEMET 25-1001 EACH PO; VANCOMYCIN 750750 MG IV; VANCOMYCIN250 MG/51 PO; ZYLOPRIM100 MG PO
[2018-05-15 21:24] VITALS: BP 132/70; BMI 30.7
[2018-05-16 05:45] LABS: APPEARANCE CLEAR (CLEAR); BILIRUBIN NEGATIVE (NEGATIVE); COLOR YELLOW (YELLOW); GLUCOSE NEGATIVE (NEGATIVE); KETONE NEGATIVE (NEGATIVE); NITRITE NEGATIVE (NEGATIVE); PROTEIN TRACE mg/dL (NEGATIVE); SPECIFIC GRAVITY 1.005 (1.005-1.020); UROBILINOGEN NORMAL (NORMAL)
[2018-05-16 05:46] LABS: BACTERIA FEW /hpf (NONE SEEN); EPITHELIAL CELLS 0-5 /hpf (0-5); RED CELLS - URINE 0-5 /hpf (0-5); WHITE CELLS - URINE 0-5 /hpf (0-5)
[2018-05-16 06:20] LABS: BASOPHILS 0.2 % (0-2); EOSINOPHILS 5.5 % (0-7); HEMATOCRIT 27.4 % (42.0-54.0); IMMATURE GRANULOCYTES 0.2 % (0-5); LYMPHOCYTES 22.9 % (15-50); MCH 29.2 pg (26.0-34.0); MCHC 32.8 g/dL (31.0-37.0); MEAN PLATELET VOLUME 8.5 fL (7.4-10.4); MONOCYTES 14.7 % (2-11); NEUTROPHILS 56.5 % (40-80); PLATELET COUNT 184 10x3/uL (130-400); RBC 3.08 10x6/uL (4.20-6.10); RDW 14.7 % (11.5-14.5)
[2018-05-16 06:44] LABS: ANION GAP 9.7 mmol/L (8-16); CALCIUM 9.1 mg/dL (8.5-10.1); CARBON DIOXIDE 30.5 mmol/L (21.0-32.0); CREATININE - SERUM 1.7 mg/dL (0.6-1.3); POTASSIUM - SERUM 4.2 mmol/L (3.5-5.1)
[2018-05-16 08:00] VITALS: BP 126/68
[2018-05-16 13:18] VITALS: Ht 180.3 cm; Wt 99.8 kg
[2018-05-16 19:52] VITALS: BP 123/68
[2018-05-17 06:55] LABS: BASOPHILS 0.7 % (0-2); EOSINOPHILS 7.2 % (0-7); HEMOGLOBIN 8.8 g/dL (13.5-17.5); IMMATURE GRANULOCYTES 0.2 % (0-5); LYMPHOCYTES 15.7 % (15-50); MCH 28.9 pg (26.0-34.0); MCHC 32.6 g/dL (31.0-37.0); MCV 88.8 fL (80.0-100.0); MEAN PLATELET VOLUME 8.7 fL (7.4-10.4); MONOCYTES 13.2 % (2-11); PLATELET COUNT 192 10x3/uL (130-400); RBC 3.04 10x6/uL (4.20-6.10); RDW 14.6 % (11.5-14.5); WBC 4.3 10x3/uL (4.8-10.8)
[2018-05-17 07:06] LABS: ANION GAP 7.7 mmol/L (8-16); CALCIUM 9.1 mg/dL (8.5-10.1); CARBON DIOXIDE 29.4 mmol/L (21.0-32.0); CREATININE - SERUM 1.7 mg/dL (0.6-1.3); POTASSIUM - SERUM 4.1 mmol/L (3.5-5.1)
[2018-05-17 08:00] VITALS: BP 123/71
[2018-05-17 20:16] VITALS: BP 131/76
[2018-05-18 08:00] VITALS: BP 123/67
[2018-05-18 20:00] VITALS: BP 114/59
[2018-05-19 08:11] VITALS: BP 114/86
[2018-05-19 18:00] VITALS: BP 119/49
[2018-05-20 06:38] LABS: BASOPHILS 0.5 % (0-2); EOSINOPHILS 5.9 % (0-7); HEMATOCRIT 27.1 % (42.0-54.0); HEMOGLOBIN 8.9 g/dL (13.5-17.5); IMMATURE GRANULOCYTES 0.2 % (0-5); LYMPHOCYTES 21.6 % (15-50); MCHC 32.8 g/dL (31.0-37.0); MCV 88.3 fL (80.0-100.0); MEAN PLATELET VOLUME 8.8 fL (7.4-10.4); MONOCYTES 12.8 % (2-11); PLATELET COUNT 209 10x3/uL (130-400); RBC 3.07 10x6/uL (4.20-6.10); RDW 14.6 % (11.5-14.5); WBC 4.4 10x3/uL (4.8-10.8)
[2018-05-20 06:58] LABS: ANION GAP 12.7 mmol/L (8-16); CALCIUM 8.9 mg/dL (8.5-10.1); CARBON DIOXIDE 26.8 mmol/L (21.0-32.0); CREATININE - SERUM 1.6 mg/dL (0.6-1.3); POTASSIUM - SERUM 4.5 mmol/L (3.5-5.1)
[2018-05-20 07:52] VITALS: BP 117/65
[2018-05-20 19:00] VITALS: BP 128/66; BP 152/63
[2018-05-21 08:00] VITALS: BP 110/60
[2018-05-21 18:00] VITALS: BP 122/58
[2018-05-22 06:42] LABS: BASOPHILS 0.2 % (0-2); EOSINOPHILS 8.1 % (0-7); HEMATOCRIT 25.4 % (42.0-54.0); HEMOGLOBIN 8.4 g/dL (13.5-17.5); LYMPHOCYTES 25.3 % (15-50); MCH 28.9 pg (26.0-34.0); MCHC 33.1 g/dL (31.0-37.0); MCV 87.3 fL (80.0-100.0); MEAN PLATELET VOLUME 8.1 fL (7.4-10.4); MONOCYTES 9.8 % (2-11); NEUTROPHILS 56.6 % (40-80); PLATELET COUNT 187 10x3/uL (130-400); RBC 2.91 10x6/uL (4.20-6.10); RDW 14.6 % (11.5-14.5); WBC 4.1 10x3/uL (4.8-10.8)
[2018-05-22 07:05] LABS: ANION GAP 10.6 mmol/L (8-16); CREATININE - SERUM 1.6 mg/dL (0.6-1.3); POTASSIUM - SERUM 4.6 mmol/L (3.5-5.1)
[2018-05-22 08:22] VITALS: BP 115/61
[2018-05-22 17:50] VITALS: BP 130/75
[2018-05-22 18:00] VITALS: BP 130/75
[2018-05-22 18:09] VITALS: BP 130/75
[2018-05-22 18:15] VITALS: BP 127/62
[2018-05-22 20:45] VITALS: BP 130/68
[2018-05-23 07:45] LABS: HEMATOCRIT 27.1 % (42.0-54.0); HEMOGLOBIN 8.9 g/dL (13.5-17.5)
[2018-05-23 08:04] VITALS: BP 119/64
[2018-05-23 18:00] VITALS: BP 113/57
[2018-05-24 06:48] LABS: BASOPHILS 0.2 % (0-2); EOSINOPHILS 8.1 % (0-7); HEMATOCRIT 27.6 % (42.0-54.0); HEMOGLOBIN 9.1 g/dL (13.5-17.5); IMMATURE GRANULOCYTES 0.7 % (0-5); LYMPHOCYTES 24.2 % (15-50); MCH 29.3 pg (26.0-34.0); MCV 88.7 fL (80.0-100.0); MEAN PLATELET VOLUME 8.8 fL (7.4-10.4); MONOCYTES 9.2 % (2-11); NEUTROPHILS 57.6 % (40-80); PLATELET COUNT 208 10x3/uL (130-400); RBC 3.11 10x6/uL (4.20-6.10); RDW 14.9 % (11.5-14.5)
[2018-05-24 06:57] LABS: CALCIUM 9.2 mg/dL (8.5-10.1); CARBON DIOXIDE 26.5 mmol/L (21.0-32.0); CREATININE - SERUM 1.7 mg/dL (0.6-1.3); POTASSIUM - SERUM 4.5 mmol/L (3.5-5.1)
[2018-05-24 07:00] LABS: WBC 5.5 10x3/uL (4.8-10.8)
[2018-05-24 08:13] VITALS: BP 123/66
[2018-05-24 18:00] VITALS: BP 130/77
[2018-05-25 08:00] VITALS: BP 124/69
[2018-05-26 08:00] VITALS: BP 130/60
[2018-05-27 04:38] VITALS: BP 133/78
[2018-05-27 06:19] LABS: BASOPHILS 0.2 % (0-2); EOSINOPHILS 4.7 % (0-7); HEMATOCRIT 29.6 % (42.0-54.0); HEMOGLOBIN 9.7 g/dL (13.5-17.5); IMMATURE GRANULOCYTES 0.2 % (0-5); LYMPHOCYTES 18.7 % (15-50); MCH 28.6 pg (26.0-34.0); MCHC 32.8 g/dL (31.0-37.0); MCV 87.3 fL (80.0-100.0); MEAN PLATELET VOLUME 8.8 fL (7.4-10.4); MONOCYTES 13.9 % (2-11); NEUTROPHILS 62.3 % (40-80); PLATELET COUNT 236 10x3/uL (130-400); RBC 3.39 10x6/uL (4.20-6.10); WBC 5.3 10x3/uL (4.8-10.8)
[2018-05-27 06:36] LABS: ANION GAP 13.4 mmol/L (8-16); CARBON DIOXIDE 26.6 mmol/L (21.0-32.0); CREATININE - SERUM 1.5 mg/dL (0.6-1.3)
[2018-05-27 08:00] VITALS: BP 118/74
[2018-05-27 20:00] VITALS: BP 123/63
[2018-05-28 08:00] VITALS: BP 119/66
[2018-05-28 19:00] VITALS: BP 114/58
[2018-05-29 06:31] LABS: BASOPHILS 0.4 % (0-2); EOSINOPHILS 3.4 % (0-7); HEMATOCRIT 29.3 % (42.0-54.0); IMMATURE GRANULOCYTES 0.2 % (0-5); LYMPHOCYTES 25.9 % (15-50); MCH 29.7 pg (26.0-34.0); MCHC 34.1 g/dL (31.0-37.0); MCV 86.9 fL (80.0-100.0); MEAN PLATELET VOLUME 8.8 fL (7.4-10.4); MONOCYTES 14.2 % (2-11); NEUTROPHILS 55.9 % (40-80); PLATELET COUNT 200 10x3/uL (130-400); RBC 3.37 10x6/uL (4.20-6.10); RDW 14.7 % (11.5-14.5)
[2018-05-29 07:16] LABS: ANION GAP 11.9 mmol/L (8-16); CALCIUM 9.2 mg/dL (8.5-10.1); CARBON DIOXIDE 27.1 mmol/L (21.0-32.0); CREATININE - SERUM 1.4 mg/dL (0.6-1.3)
[2018-05-29 08:00] VITALS: BP 119/56
[2018-05-29 19:00] VITALS: BP 131/66
[2018-05-30 07:53] VITALS: BP 118/62
[2018-05-30 19:00] VITALS: BP 124/66
[2018-05-31 06:32] LABS: ANION GAP 12.2 mmol/L (8-16); CALCIUM 9.1 mg/dL (8.5-10.1); CARBON DIOXIDE 25.6 mmol/L (21.0-32.0); CREATININE - SERUM 1.7 mg/dL (0.6-1.3); POTASSIUM - SERUM 3.8 mmol/L (3.5-5.1)
[2018-05-31 06:33] LABS: BASOPHILS 0.3 % (0-2); HEMATOCRIT 29.7 % (42.0-54.0); HEMOGLOBIN 9.8 g/dL (13.5-17.5); IMMATURE GRANULOCYTES 0.2 % (0-5); LYMPHOCYTES 27.1 % (15-50); MCH 28.8 pg (26.0-34.0); MCV 87.4 fL (80.0-100.0); MEAN PLATELET VOLUME 8.6 fL (7.4-10.4); MONOCYTES 10.4 % (2-11); PLATELET COUNT 169 10x3/uL (130-400); RDW 14.7 % (11.5-14.5); WBC 5.8 10x3/uL (4.8-10.8)
[2018-05-31 07:58] VITALS: BP 129/70
[2018-05-31] MEDS ORDERED: OXYCONTIN10 MG PO (08:20)
== END 2018-05-31 10:44 | DRG 91 ==
LOC: D.REHAB 19:15
PROVIDERS: Emergency Medicine
DX: G72.89 Other specified myopathies (principal); J18.9 Pneumonia, unspecified organism; J90 Pleural effusion, not elsewhere classified; N17.9 Acute kidney failure, unspecified; M00.9 Pyogenic arthritis, unspecified; E66.01 Morbid (severe) obesity due to excess calories; D64.9 Anemia, unspecified; I25.10 Atherosclerotic heart disease of native coronary artery without angina pectoris; I48.91 Unspecified atrial fibrillation; G20 Parkinson's disease; K57.90 Diverticulosis of intestine, part unspecified, without perforation or abscess without bleeding; K59.00 Constipation, unspecified; K21.9 Gastro-esophageal reflux disease without esophagitis; I11.0 Hypertensive heart disease with heart failure; I50.9 Heart failure, unspecified; Z68.31 Body mass index [BMI] 31.0-31.9, adult; E11.65 Type 2 diabetes mellitus with hyperglycemia

== ENCOUNTER 2018-06-18 15:33 | Inpatient (IN) | payer MEDICARE, OTHER ==
[~2018-06-18] VITALS: Ht 180.3 cm; Wt 72.6 kg
--- NOTE | ~2018-06-18 | CN ---
PATIENT NAME:ZARINA ANN MEDICAL RECORD: [id number] : 46 LOCATION:D.MS John2240 ADMIT DATE: 06/18/18 ACCOUNT: [id number] CONSULTING PHYSICIAN: ESTEFANIA GARRETT MD REFERRING PHYSICIAN: MAIKEL WALTERS MD DATE OF CONSULTATION: 07/03/2018 CARDIOLOGY CONSULTATION DATE OF SERVICE: 07/03/2018 DIAGNOSES: 1. Abdominal pain. 2. Coronary artery disease. 3. Previous percutaneous transluminal coronary angioplasty stent. 4. Sick sinus syndrome. 5. Status post pacemaker. 6. Abnormal ECG. 7. Hypertension. 8. Hyperlipidemia. HISTORY OF PRESENT ILLNESS: This gentleman is admitted with multiple GI problems, we were consulted for possible chest pain. His chest pain is epigastric pain with some radiation to the lower chest area. Nothing like his previous angina. His EKG is with a left bundle-branch block, but this is not changed. He does have a pacemaker. He has been on telemetry, he has had no significant dysrhythmias. His troponin is normal. PHYSICAL EXAMINATION: GENERAL APPEARANCE: Well-nourished, well-developed, appears stated age. Level of distress, comfortable. PSYCHIATRIC: Mental status, alert, normal affect. Orientation, oriented to time, place and person. EYES: Lids and conjunctiva, noninjected. No discharge, no pallor. ENT: Lips, teeth, gums, normal dentition. Oropharynx, no cyanosis, no pallor. NECK: Carotid arteries, bilateral normal upstroke, no bruits, no thrills. JUGULAR VEINS: No jugular venous pressure or distention. CERVICAL LYMPH NODES: Nontender, nonenlarged. THYROID: Not enlarged. Nontender. No nodules. LUNGS: Respiratory effort, unlabored. CHEST: Normal curvature. No thoracic deformity. No chest wall tenderness. Percussion, resonant. Auscultation, clear. No wheezes, no rales, no rhonchi. CARDIOVASCULAR: Precordial exam, nondisplaced. No heaves or pericardial thrills. Rate and rhythm, regular. Heart sounds, normal S1, normal S2. No S3, no gallop, no rub. Systolic murmur, not heard. Diastolic murmur, not heard. EXTREMITIES: No cyanosis, no edema. Peripheral pulses, full and equal in all extremities, except as noted. No bruits appreciated. ABDOMEN: Soft, nondistended. Normal aorta. No bruit. Nontender. No masses. Liver, nontender, no hepatomegaly. Spleen, nontender, no splenomegaly. MUSCULOSKELETAL: No joint tenderness. No joint swelling. No erythema. NEUROLOGICAL: Normal gait, normal strength, normal tone. SKIN: Warm and dry. OVERALL IMPRESSION: Abdominal pain, no chest pain, some radiation to the chest area. This is a continuation of the abdominal problems. At this time, I do not CONSULT REPORT [id number] ZARINA ANN think any other cardiac workup or treatment is necessary. TRANSINT:[id number] Voice Confirmation ID: [id number] DOCUMENT ID: [id number] ESTEFANIA GARRETT MD at 1439 CC: [id number] DICTATION DATE: 07/03/18 1226 FISH PROTECTOR: 07/03/18 1240 ADM IN [facility] [address] [place] [id number]
[2018-06-18 16:19] LABS: BASOPHILS 0.1 % (0-2); EOSINOPHILS 0.5 % (0-7); HEMATOCRIT 27.7 % (42.0-54.0); HEMOGLOBIN 9.2 g/dL (13.5-17.5); IMMATURE GRANULOCYTES 0.2 % (0-5); LYMPHOCYTES 8.6 % (15-50); MCH 28.7 pg (26.0-34.0); MCHC 33.2 g/dL (31.0-37.0); MCV 86.3 fL (80.0-100.0); MEAN PLATELET VOLUME 8.2 fL (7.4-10.4); MONOCYTES 7.9 % (2-11); NEUTROPHILS 82.7 % (40-80); PLATELET COUNT 206 10x3/uL (130-400); RBC 3.21 10x6/uL (4.20-6.10); RDW 14.3 % (11.5-14.5)
[2018-06-18 16:39] LABS: ALKALINE PHOSPHATASE 139 U/L (46-116); ALT (SGPT) 8 U/L (10-68); BILIRUBIN - TOTAL 0.84 mg/dL (0.2-1.3); CALC OSMOLALITY 263 mosm/kg (275-300); CALCIUM 8.5 mg/dL (8.5-10.1); CARBON DIOXIDE 26.1 mmol/L (21.0-32.0); CHLORIDE - SERUM 96 mmol/L (98-107); CREATININE - SERUM 1.6 mg/dL (0.6-1.3); GLUCOSE 90 mg/dL (74-106); POTASSIUM - SERUM 3.7 mmol/L (3.5-5.1); PROTEIN - SERUM 6.9 g/dL (6.4-8.2); SODIUM 130 mmol/L (136-145); UREA NITROGEN 21 mg/dL (7-18); eGFR NON AFRICAN AMERICAN 46 mL/min (90-120)
[2018-06-18 16:41] LABS: AMYLASE - SERUM 28 U/L (25-115); LIPASE 130 U/L (73-393)
[2018-06-18 16:50] LABS: TROPONIN-I < 0.017 ng/mL (0.000-0.060)
[2018-06-18 19:26] VITALS: BP 126/70
[2018-06-18 20:00] VITALS: BP 123/75
[2018-06-18 21:00] VITALS: BP 118/66
[2018-06-18 21:56] LABS: APPEARANCE CLEAR (CLEAR); BILIRUBIN NEGATIVE (NEGATIVE); COLOR STRAW (YELLOW); GLUCOSE NEGATIVE (NEGATIVE); KETONE NEGATIVE (NEGATIVE); NITRITE POSITIVE (NEGATIVE); PROTEIN TRACE mg/dL (NEGATIVE); SPECIFIC GRAVITY 1.005 (1.005-1.020); UROBILINOGEN NORMAL (NORMAL)
[2018-06-18 22:00] LABS: BACTERIA MODERATE /hpf (NONE SEEN); RED CELLS - URINE 0-5 /hpf (0-5)
[2018-06-18 22:01] VITALS: BP 134/68
[2018-06-18 22:33] VITALS: BP 137/72
[2018-06-18 23:00] VITALS: BP 128/68
[2018-06-19] MEDS ORDERED: PROTONIX40 MG PO (01:28)
[2018-06-19 04:00] VITALS: BP 126/55
[2018-06-19 05:02] VITALS: BP 123/62; BMI 22.3
[2018-06-19 07:09] LABS: BASOPHILS 0.1 % (0-2); EOSINOPHILS 0.4 % (0-7); HEMATOCRIT 26.3 % (42.0-54.0); HEMOGLOBIN 8.8 g/dL (13.5-17.5); IMMATURE GRANULOCYTES 0.2 % (0-5); LYMPHOCYTES 10.4 % (15-50); MCH 28.2 pg (26.0-34.0); MCHC 33.5 g/dL (31.0-37.0); MEAN PLATELET VOLUME 8.3 fL (7.4-10.4); MONOCYTES 7.5 % (2-11); NEUTROPHILS 81.4 % (40-80); PLATELET COUNT 211 10x3/uL (130-400); RBC 3.12 10x6/uL (4.20-6.10); RDW 14.5 % (11.5-14.5); WBC 9.4 10x3/uL (4.8-10.8)
[2018-06-19 07:19] LABS: MCV 84.3 fL (80.0-100.0)
[2018-06-19 07:35] LABS: ANION GAP 11.1 mmol/L (8-16); CALCIUM 8.5 mg/dL (8.5-10.1); CARBON DIOXIDE 24.5 mmol/L (21.0-32.0); CREATININE - SERUM 1.5 mg/dL (0.6-1.3); POTASSIUM - SERUM 3.6 mmol/L (3.5-5.1)
[2018-06-19 09:56] VITALS: BP 149/65
[2018-06-19 13:28] VITALS: BP 110/71
[2018-06-19 15:14] VITALS: BMI 22.3
[2018-06-19 16:40] VITALS: BP 146/57
[2018-06-20 03:58] VITALS: BP 117/67
[2018-06-20 06:40] LABS: BASOPHILS 0.2 % (0-2); EOSINOPHILS 1.7 % (0-7); HEMATOCRIT 24.5 % (42.0-54.0); HEMOGLOBIN 8.2 g/dL (13.5-17.5); IMMATURE GRANULOCYTES 0.2 % (0-5); LYMPHOCYTES 14.6 % (15-50); MCH 28.5 pg (26.0-34.0); MCHC 33.5 g/dL (31.0-37.0); MCV 85.1 fL (80.0-100.0); MEAN PLATELET VOLUME 8.7 fL (7.4-10.4); MONOCYTES 11.4 % (2-11); NEUTROPHILS 71.9 % (40-80); PLATELET COUNT 205 10x3/uL (130-400); RBC 2.88 10x6/uL (4.20-6.10); RDW 14.5 % (11.5-14.5)
[2018-06-20 06:41] LABS: ANION GAP 12.7 mmol/L (8-16); CALCIUM 8.3 mg/dL (8.5-10.1); CARBON DIOXIDE 24.9 mmol/L (21.0-32.0); CREATININE - SERUM 1.4 mg/dL (0.6-1.3); POTASSIUM - SERUM 3.6 mmol/L (3.5-5.1)
[2018-06-20 06:50] LABS: WBC 6.3 10x3/uL (4.8-10.8)
[2018-06-20 16:25] VITALS: BP 134/72
[2018-06-20 20:40] VITALS: BP 116/73
[2018-06-20 22:00] VITALS: BP 108/66
[2018-06-20 22:30] VITALS: BP 117/69
[2018-06-20 23:20] VITALS: BP 116/68
[2018-06-21 01:10] VITALS: BP 129/75
[2018-06-21 05:23] LABS: BASOPHILS 0.1 % (0-2); EOSINOPHILS 3.2 % (0-7); HEMATOCRIT 25.3 % (42.0-54.0); HEMOGLOBIN 8.6 g/dL (13.5-17.5); IMMATURE GRANULOCYTES 0.1 % (0-5); LYMPHOCYTES 14.1 % (15-50); MCV 85.2 fL (80.0-100.0); MEAN PLATELET VOLUME 8.2 fL (7.4-10.4); MONOCYTES 12.4 % (2-11); NEUTROPHILS 70.1 % (40-80); PLATELET COUNT 202 10x3/uL (130-400); RBC 2.97 10x6/uL (4.20-6.10); RDW 14.7 % (11.5-14.5); WBC 7.1 10x3/uL (4.8-10.8)
[2018-06-21 05:50] LABS: ANION GAP 10.5 mmol/L (8-16); CARBON DIOXIDE 24.2 mmol/L (21.0-32.0); CREATININE - SERUM 1.3 mg/dL (0.6-1.3); MAGNESIUM - SERUM 1.6 mg/dL (1.8-2.4); POTASSIUM - SERUM 3.7 mmol/L (3.5-5.1)
[2018-06-21 05:51] VITALS: BP 125/73
[2018-06-21 08:18] VITALS: BP 135/72
[2018-06-21 13:10] VITALS: BP 134/76
[2018-06-21 16:40] VITALS: BP 147/80
[2018-06-21 20:55] VITALS: BP 147/44
[2018-06-22 04:40] VITALS: BP 143/82
[2018-06-22 05:47] LABS: BASOPHILS 0.2 % (0-2); EOSINOPHILS 3.4 % (0-7); HEMATOCRIT 25.6 % (42.0-54.0); HEMOGLOBIN 8.6 g/dL (13.5-17.5); IMMATURE GRANULOCYTES 0.2 % (0-5); LYMPHOCYTES 18.6 % (15-50); MCH 28.6 pg (26.0-34.0); MCHC 33.6 g/dL (31.0-37.0); MEAN PLATELET VOLUME 8.5 fL (7.4-10.4); MONOCYTES 12.7 % (2-11); NEUTROPHILS 64.9 % (40-80); PLATELET COUNT 201 10x3/uL (130-400); RBC 3.01 10x6/uL (4.20-6.10); RDW 14.5 % (11.5-14.5); WBC 5.5 10x3/uL (4.8-10.8)
[2018-06-22 06:08] LABS: ANION GAP 9.7 mmol/L (8-16); CALCIUM 8.2 mg/dL (8.5-10.1); CARBON DIOXIDE 25.8 mmol/L (21.0-32.0); CREATININE - SERUM 1.2 mg/dL (0.6-1.3); POTASSIUM - SERUM 3.5 mmol/L (3.5-5.1)
[2018-06-22 11:01] VITALS: BP 121/65
[2018-06-22 15:11] VITALS: BP 133/75
[2018-06-22 21:30] VITALS: BP 129/79
[2018-06-23 05:15] VITALS: BP 127/61
[2018-06-23 07:23] LABS: BASOPHILS 0.2 % (0-2); EOSINOPHILS 4.3 % (0-7); HEMATOCRIT 27.8 % (42.0-54.0); HEMOGLOBIN 9.2 g/dL (13.5-17.5); IMMATURE GRANULOCYTES 0.2 % (0-5); LYMPHOCYTES 14.2 % (15-50); MCH 28.3 pg (26.0-34.0); MCHC 33.1 g/dL (31.0-37.0); MCV 85.5 fL (80.0-100.0); MEAN PLATELET VOLUME 8.4 fL (7.4-10.4); MONOCYTES 8.9 % (2-11); NEUTROPHILS 72.2 % (40-80); PLATELET COUNT 176 10x3/uL (130-400); RBC 3.25 10x6/uL (4.20-6.10); RDW 14.4 % (11.5-14.5); WBC 5.4 10x3/uL (4.8-10.8)
[2018-06-23 07:41] LABS: ANION GAP 12.1 mmol/L (8-16); CALCIUM 8.5 mg/dL (8.5-10.1); CARBON DIOXIDE 24.4 mmol/L (21.0-32.0); CREATININE - SERUM 1.1 mg/dL (0.6-1.3); POTASSIUM - SERUM 3.5 mmol/L (3.5-5.1)
[2018-06-23 18:07] LABS: APPEARANCE HAZY (CLEAR); BILIRUBIN NEGATIVE (NEGATIVE); COLOR YELLOW (YELLOW); GLUCOSE NEGATIVE (NEGATIVE); KETONE NEGATIVE (NEGATIVE); NITRITE NEGATIVE (NEGATIVE); PROTEIN 2+ mg/dL (NEGATIVE); UROBILINOGEN NORMAL (NORMAL)
[2018-06-23 18:12] LABS: BACTERIA FEW /hpf (NONE SEEN); EPITHELIAL CELLS OCC /hpf (0-5); HYALINE CAST RARE /lpf (NONE SEEN); RED CELLS - URINE 0-5 /hpf (0-5)
[2018-06-23 21:50] VITALS: BP 149/85
[2018-06-24 05:15] VITALS: BP 149/88
[2018-06-24 06:12] LABS: BASOPHILS 0 % (0-2); EOSINOPHILS 4.1 % (0-7); HEMATOCRIT 25.5 % (42.0-54.0); HEMOGLOBIN 8.4 g/dL (13.5-17.5); LYMPHOCYTES 21.6 % (15-50); MCH 28.1 pg (26.0-34.0); MCHC 32.9 g/dL (31.0-37.0); MCV 85.3 fL (80.0-100.0); MEAN PLATELET VOLUME 8.1 fL (7.4-10.4); MONOCYTES 13.4 % (2-11); NEUTROPHILS 60.9 % (40-80); PLATELET COUNT 171 10x3/uL (130-400); RBC 2.99 10x6/uL (4.20-6.10); RDW 14.4 % (11.5-14.5); WBC 4.6 10x3/uL (4.8-10.8)
[2018-06-24 06:28] LABS: CALC OSMOLALITY 262 mosm/kg (275-300); CALCIUM 8.5 mg/dL (8.5-10.1); CARBON DIOXIDE 25.5 mmol/L (21.0-32.0); CHLORIDE - SERUM 101 mmol/L (98-107); GLUCOSE 89 mg/dL (74-106); POTASSIUM - SERUM 3.4 mmol/L (3.5-5.1); SODIUM 132 mmol/L (136-145); UREA NITROGEN 9 mg/dL (7-18); eGFR NON AFRICAN AMERICAN 79 mL/min (90-120)
[2018-06-24 08:49] VITALS: BP 142/82
[2018-06-24 16:19] VITALS: BP 148/87
[2018-06-24 20:00] VITALS: BP 153/83
[2018-06-25 03:18] VITALS: BP 142/76
[2018-06-25 07:30] LABS: BASOPHILS 0 % (0-2); EOSINOPHILS 1.4 % (0-7); HEMATOCRIT 25.5 % (42.0-54.0); HEMOGLOBIN 8.6 g/dL (13.5-17.5); IMMATURE GRANULOCYTES 0.3 % (0-5); LYMPHOCYTES 16.7 % (15-50); MCH 28.6 pg (26.0-34.0); MCHC 33.7 g/dL (31.0-37.0); MCV 84.7 fL (80.0-100.0); MEAN PLATELET VOLUME 8.3 fL (7.4-10.4); NEUTROPHILS 69.6 % (40-80); RBC 3.01 10x6/uL (4.20-6.10); RDW 14.1 % (11.5-14.5)
[2018-06-25 07:31] LABS: PLATELET COUNT 216 10x3/uL (130-400); WBC 6.7 10x3/uL (4.8-10.8)
[2018-06-25 07:48] LABS: ALBUMIN 2.7 g/dL (3.4-5.0); ANION GAP 10.9 mmol/L (8-16); BILIRUBIN - TOTAL 0.89 mg/dL (0.2-1.3); CALCIUM 8.6 mg/dL (8.5-10.1); CARBON DIOXIDE 23.8 mmol/L (21.0-32.0); CREATININE - SERUM 1.1 mg/dL (0.6-1.3); POTASSIUM - SERUM 3.7 mmol/L (3.5-5.1); PROTEIN - SERUM 6.3 g/dL (6.4-8.2)
[2018-06-25 08:26] VITALS: BP 141/75
[2018-06-25 22:27] VITALS: BP 156/87
[2018-06-26 05:08] VITALS: BP 148/85
[2018-06-26 06:37] LABS: BASOPHILS 0.3 % (0-2); EOSINOPHILS 2.4 % (0-7); HEMATOCRIT 24.3 % (42.0-54.0); HEMOGLOBIN 8.1 g/dL (13.5-17.5); IMMATURE GRANULOCYTES 0.3 % (0-5); MCH 28.6 pg (26.0-34.0); MCHC 33.3 g/dL (31.0-37.0); MCV 85.9 fL (80.0-100.0); MEAN PLATELET VOLUME 8.5 fL (7.4-10.4); MONOCYTES 13.3 % (2-11); NEUTROPHILS 72.7 % (40-80); PLATELET COUNT 183 10x3/uL (130-400); RBC 2.83 10x6/uL (4.20-6.10); RDW 14.1 % (11.5-14.5); WBC 5.8 10x3/uL (4.8-10.8)
[2018-06-26 06:57] LABS: ALBUMIN 2.5 g/dL (3.4-5.0); ANION GAP 10.8 mmol/L (8-16); BILIRUBIN - TOTAL 0.75 mg/dL (0.2-1.3); CALCIUM 8.7 mg/dL (8.5-10.1); CARBON DIOXIDE 24.8 mmol/L (21.0-32.0); CREATININE - SERUM 1.2 mg/dL (0.6-1.3); POTASSIUM - SERUM 3.6 mmol/L (3.5-5.1); PROTEIN - SERUM 5.9 g/dL (6.4-8.2)
[2018-06-26 08:43] VITALS: BP 131/76
[2018-06-26 12:40] VITALS: BP 141/74
[2018-06-26 13:18] LABS: OVA + PARASITE EXAM Final report (())
[2018-06-26 16:46] VITALS: BP 157/83
[2018-06-26 20:00] VITALS: BP 155/62
[2018-06-27 05:58] LABS: BASOPHILS 0.2 % (0-2); EOSINOPHILS 3.3 % (0-7); HEMATOCRIT 24.3 % (42.0-54.0); LYMPHOCYTES 21.3 % (15-50); MCHC 32.9 g/dL (31.0-37.0); MEAN PLATELET VOLUME 8.5 fL (7.4-10.4); MONOCYTES 18.2 % (2-11); PLATELET COUNT 159 10x3/uL (130-400); RBC 2.86 10x6/uL (4.20-6.10); WBC 4.5 10x3/uL (4.8-10.8)
[2018-06-27 06:23] LABS: ALBUMIN 2.4 g/dL (3.4-5.0); ALKALINE PHOSPHATASE 116 U/L (46-116); ALT (SGPT) 6 U/L (10-68); BILIRUBIN - TOTAL 0.81 mg/dL (0.2-1.3); CALC OSMOLALITY 264 mosm/kg (275-300); CALCIUM 8.6 mg/dL (8.5-10.1); CARBON DIOXIDE 25.6 mmol/L (21.0-32.0); CHLORIDE - SERUM 101 mmol/L (98-107); GLUCOSE 84 mg/dL (74-106); POTASSIUM - SERUM 3.3 mmol/L (3.5-5.1); PROTEIN - SERUM 5.9 g/dL (6.4-8.2); SODIUM 134 mmol/L (136-145); UREA NITROGEN 8 mg/dL (7-18); eGFR NON AFRICAN AMERICAN 79 mL/min (90-120)
[2018-06-27 09:10] VITALS: BP 175/76
[2018-06-27 11:58] VITALS: BP 159/66
[2018-06-27 17:36] VITALS: BP 165/73
[2018-06-27 20:00] VITALS: BP 123/71
[2018-06-28 03:13] VITALS: BP 141/76
[2018-06-28 07:06] LABS: BASOPHILS 0.2 % (0-2); EOSINOPHILS 5.9 % (0-7); HEMATOCRIT 24.2 % (42.0-54.0); HEMOGLOBIN 8.2 g/dL (13.5-17.5); LYMPHOCYTES 21.2 % (15-50); MCH 28.7 pg (26.0-34.0); MCHC 33.9 g/dL (31.0-37.0); MCV 84.6 fL (80.0-100.0); MEAN PLATELET VOLUME 8.7 fL (7.4-10.4); MONOCYTES 13.8 % (2-11); NEUTROPHILS 58.9 % (40-80); PLATELET COUNT 178 10x3/uL (130-400); RBC 2.86 10x6/uL (4.20-6.10); RDW 14.3 % (11.5-14.5); WBC 4.6 10x3/uL (4.8-10.8)
[2018-06-28 07:20] LABS: ALBUMIN 2.4 g/dL (3.4-5.0); ALKALINE PHOSPHATASE 111 U/L (46-116); BILIRUBIN - TOTAL 0.66 mg/dL (0.2-1.3); CALC OSMOLALITY 268 mosm/kg (275-300); CALCIUM 8.6 mg/dL (8.5-10.1); CARBON DIOXIDE 24.3 mmol/L (21.0-32.0); CHLORIDE - SERUM 103 mmol/L (98-107); GLUCOSE 98 mg/dL (74-106); POTASSIUM - SERUM 3.1 mmol/L (3.5-5.1); PROTEIN - SERUM 5.8 g/dL (6.4-8.2); SODIUM 135 mmol/L (136-145); UREA NITROGEN 9 mg/dL (7-18); eGFR NON AFRICAN AMERICAN 79 mL/min (90-120)
[2018-06-28 07:21] LABS: ALT (SGPT) 3 U/L (10-68)
[2018-06-28 08:48] VITALS: BP 146/81
[2018-06-28 10:23] LABS: CEA 3.8 ng/mL (0.0-4.7)
[2018-06-28 12:30] VITALS: BP 138/77
[2018-06-28 16:56] VITALS: BP 144/77
[2018-06-28 22:31] VITALS: BP 159/82
[2018-06-29 06:23] LABS: BASOPHILS 0.2 % (0-2); EOSINOPHILS 6.2 % (0-7); HEMATOCRIT 23.1 % (42.0-54.0); HEMOGLOBIN 7.7 g/dL (13.5-17.5); LYMPHOCYTES 18.7 % (15-50); MCH 28.3 pg (26.0-34.0); MCHC 33.3 g/dL (31.0-37.0); MCV 84.9 fL (80.0-100.0); MEAN PLATELET VOLUME 8.6 fL (7.4-10.4); MONOCYTES 12.2 % (2-11); NEUTROPHILS 62.7 % (40-80); PLATELET COUNT 183 10x3/uL (130-400); RBC 2.72 10x6/uL (4.20-6.10); RDW 14.1 % (11.5-14.5); WBC 4.2 10x3/uL (4.8-10.8)
[2018-06-29 06:43] LABS: ALBUMIN 2.4 g/dL (3.4-5.0); ALKALINE PHOSPHATASE 129 U/L (46-116); BILIRUBIN - TOTAL 0.68 mg/dL (0.2-1.3); CALC OSMOLALITY 260 mosm/kg (275-300); CALCIUM 8.6 mg/dL (8.5-10.1); CARBON DIOXIDE 25.7 mmol/L (21.0-32.0); CHLORIDE - SERUM 99 mmol/L (98-107); GLUCOSE 98 mg/dL (74-106); PROTEIN - SERUM 5.9 g/dL (6.4-8.2); SODIUM 131 mmol/L (136-145); UREA NITROGEN 7 mg/dL (7-18); eGFR NON AFRICAN AMERICAN 79 mL/min (90-120)
[2018-06-29 06:50] LABS: ALT (SGPT) 6 U/L (10-68)
[2018-06-29 09:13] VITALS: BP 143/76
[2018-06-29 20:00] VITALS: BP 144/80
[2018-06-30 04:00] VITALS: BP 130/62
[2018-06-30 06:56] LABS: ALBUMIN 2.5 g/dL (3.4-5.0); ALKALINE PHOSPHATASE 132 U/L (46-116); ALT (SGPT) 5 U/L (10-68); BILIRUBIN - TOTAL 0.71 mg/dL (0.2-1.3); CALCIUM 8.5 mg/dL (8.5-10.1); CARBON DIOXIDE 24.6 mmol/L (21.0-32.0); CHLORIDE - SERUM 102 mmol/L (98-107); CREATININE - SERUM 0.9 mg/dL (0.6-1.3); GLUCOSE 119 mg/dL (74-106); PROTEIN - SERUM 6.1 g/dL (6.4-8.2); SODIUM 134 mmol/L (136-145); eGFR NON AFRICAN AMERICAN 89 mL/min (90-120)
[2018-06-30 06:57] LABS: HEMATOCRIT 23.9 % (42.0-54.0); HEMOGLOBIN 8.2 g/dL (13.5-17.5); LYMPHOCYTES 21.6 % (15-50); MCH 29.1 pg (26.0-34.0); MCHC 34.3 g/dL (31.0-37.0); MCV 84.8 fL (80.0-100.0); MEAN PLATELET VOLUME 8.1 fL (7.4-10.4); NEUTROPHILS 62.3 % (40-80); RBC 2.82 10x6/uL (4.20-6.10)
[2018-06-30 07:03] LABS: CALC OSMOLALITY 265 mosm/kg (275-300); POTASSIUM - SERUM 2.9 mmol/L (3.5-5.1); UREA NITROGEN 5 mg/dL (7-18)
[2018-06-30 07:04] LABS: PLATELET COUNT 231 10x3/uL (130-400)
[2018-06-30 09:10] VITALS: BP 142/79
[2018-06-30 15:31] LABS: MAGNESIUM - SERUM 1.7 mg/dL (1.8-2.4); PHOSPHOROUS 2.5 mg/dL (2.5-4.9)
[2018-06-30 16:26] VITALS: BP 161/74
[2018-06-30 20:23] VITALS: BP 144/71
[2018-07-01 04:00] VITALS: BP 151/85
[2018-07-01 08:06] LABS: BASOPHILS 0.5 % (0-2); EOSINOPHILS 2.6 % (0-7); HEMATOCRIT 22.3 % (42.0-54.0); LYMPHOCYTES 22.7 % (15-50); MCH 28.2 pg (26.0-34.0); MCHC 33.6 g/dL (31.0-37.0); MCV 83.8 fL (80.0-100.0); MEAN PLATELET VOLUME 8.8 fL (7.4-10.4); MONOCYTES 9.6 % (2-11); NEUTROPHILS 64.6 % (40-80); PLATELET COUNT 203 10x3/uL (130-400); RBC 2.66 10x6/uL (4.20-6.10); RDW 14.3 % (11.5-14.5); WBC 3.8 10x3/uL (4.8-10.8)
[2018-07-01 08:08] VITALS: BP 158/77
[2018-07-01 08:12] LABS: HEMOGLOBIN 7.5 g/dL (13.5-17.5)
[2018-07-01 08:32] LABS: ALBUMIN 2.5 g/dL (3.4-5.0); ALKALINE PHOSPHATASE 130 U/L (46-116); BILIRUBIN - TOTAL 0.78 mg/dL (0.2-1.3); CALC OSMOLALITY 266 mosm/kg (275-300); CALCIUM 8.4 mg/dL (8.5-10.1); CARBON DIOXIDE 23.9 mmol/L (21.0-32.0); CHLORIDE - SERUM 102 mmol/L (98-107); CREATININE - SERUM 0.8 mg/dL (0.6-1.3); GLUCOSE 99 mg/dL (74-106); POTASSIUM - SERUM 3.1 mmol/L (3.5-5.1); SODIUM 135 mmol/L (136-145); UREA NITROGEN 5 mg/dL (7-18); eGFR NON AFRICAN AMERICAN > 90 mL/min (90-120)
[2018-07-01 08:33] LABS: ALT (SGPT) 7 U/L (10-68)
[2018-07-01 16:41] VITALS: BP 161/87
[2018-07-01 20:00] VITALS: BP 181/91
[2018-07-02 03:11] VITALS: BP 148/83
[2018-07-02 05:58] LABS: BASOPHILS 0.3 % (0-2); EOSINOPHILS 2.1 % (0-7); HEMOGLOBIN 7.8 g/dL (13.5-17.5); IMMATURE GRANULOCYTES 0.3 % (0-5); LYMPHOCYTES 22.8 % (15-50); MCH 28.3 pg (26.0-34.0); MCHC 33.9 g/dL (31.0-37.0); MCV 83.3 fL (80.0-100.0); MEAN PLATELET VOLUME 8.6 fL (7.4-10.4); MONOCYTES 14.4 % (2-11); NEUTROPHILS 60.1 % (40-80); PLATELET COUNT 191 10x3/uL (130-400); RBC 2.76 10x6/uL (4.20-6.10); RDW 14.6 % (11.5-14.5); WBC 3.9 10x3/uL (4.8-10.8)
[2018-07-02 06:43] LABS: ALBUMIN 2.5 g/dL (3.4-5.0); ALKALINE PHOSPHATASE 129 U/L (46-116); ALT (SGPT) 6 U/L (10-68); BILIRUBIN - TOTAL 1.27 mg/dL (0.2-1.3); CALC OSMOLALITY 263 mosm/kg (275-300); CALCIUM 8.5 mg/dL (8.5-10.1); CARBON DIOXIDE 24.4 mmol/L (21.0-32.0); CHLORIDE - SERUM 102 mmol/L (98-107); CREATININE - SERUM 0.9 mg/dL (0.6-1.3); GLUCOSE 87 mg/dL (74-106); POTASSIUM - SERUM 3.3 mmol/L (3.5-5.1); PROTEIN - SERUM 5.8 g/dL (6.4-8.2); SODIUM 134 mmol/L (136-145); UREA NITROGEN 5 mg/dL (7-18); eGFR NON AFRICAN AMERICAN 89 mL/min (90-120)
[2018-07-02 09:13] VITALS: BP 174/94
[2018-07-02 12:28] VITALS: BP 174/85
[2018-07-02 16:06] VITALS: BP 169/92
[2018-07-02 19:27] VITALS: BP 142/92
[2018-07-03 04:00] VITALS: BP 161/84
[2018-07-03 05:34] LABS: BASOPHILS 0.2 % (0-2); EOSINOPHILS 1.1 % (0-7); HEMATOCRIT 25.5 % (42.0-54.0); HEMOGLOBIN 8.7 g/dL (13.5-17.5); IMMATURE GRANULOCYTES 0.2 % (0-5); LYMPHOCYTES 11.5 % (15-50); MCH 28.4 pg (26.0-34.0); MCHC 34.1 g/dL (31.0-37.0); MCV 83.3 fL (80.0-100.0); MEAN PLATELET VOLUME 8.9 fL (7.4-10.4); MONOCYTES 10.9 % (2-11); NEUTROPHILS 76.1 % (40-80); PLATELET COUNT 201 10x3/uL (130-400); RBC 3.06 10x6/uL (4.20-6.10); RDW 14.3 % (11.5-14.5)
[2018-07-03 05:40] LABS: WBC 5.7 10x3/uL (4.8-10.8)
[2018-07-03 05:51] LABS: ALBUMIN 2.7 g/dL (3.4-5.0); ALKALINE PHOSPHATASE 136 U/L (46-116); BILIRUBIN - TOTAL 1.56 mg/dL (0.2-1.3); CALC OSMOLALITY 265 mosm/kg (275-300); CALCIUM 8.8 mg/dL (8.5-10.1); CARBON DIOXIDE 24.1 mmol/L (21.0-32.0); CHLORIDE - SERUM 101 mmol/L (98-107); CREATININE - SERUM 0.9 mg/dL (0.6-1.3); GLUCOSE 97 mg/dL (74-106); POTASSIUM - SERUM 3.2 mmol/L (3.5-5.1); PROTEIN - SERUM 5.9 g/dL (6.4-8.2); SODIUM 134 mmol/L (136-145); UREA NITROGEN 6 mg/dL (7-18); eGFR NON AFRICAN AMERICAN 89 mL/min (90-120)
[2018-07-03 05:59] LABS: ALT (SGPT) 8 U/L (10-68)
[2018-07-03 09:13] VITALS: BP 184/90
[2018-07-03 11:26] LABS: CKMB 0.5 U/L (0.0-3.6); CREATINE KINASE 38 UL (21-232); TROPONIN-I 0.017 ng/mL (0.000-0.060)
[2018-07-03 11:40] VITALS: BP 171/93
[2018-07-03 16:45] VITALS: BP 142/84
[2018-07-03 18:23] LABS: CKMB 0.4 U/L (0.0-3.6); CREATINE KINASE 30 UL (21-232); TROPONIN-I 0.021 ng/mL (0.000-0.060)
[2018-07-03 20:00] VITALS: BP 144/79
[2018-07-03 23:44] LABS: CKMB 0.3 U/L (0.0-3.6); CREATINE KINASE 20 UL (21-232); POTASSIUM - SERUM 3.5 mmol/L (3.5-5.1); TROPONIN-I 0.018 ng/mL (0.000-0.060)
[2018-07-04 04:00] VITALS: BP 160/82
[2018-07-04 05:33] LABS: BASOPHILS 0.4 % (0-2); EOSINOPHILS 1.4 % (0-7); HEMATOCRIT 24.7 % (42.0-54.0); HEMOGLOBIN 8.6 g/dL (13.5-17.5); IMMATURE GRANULOCYTES 0.2 % (0-5); LYMPHOCYTES 13.7 % (15-50); MCH 29.4 pg (26.0-34.0); MCHC 34.8 g/dL (31.0-37.0); MCV 84.3 fL (80.0-100.0); MEAN PLATELET VOLUME 8.7 fL (7.4-10.4); MONOCYTES 13.3 % (2-11); PLATELET COUNT 179 10x3/uL (130-400); RBC 2.93 10x6/uL (4.20-6.10); RDW 14.1 % (11.5-14.5)
[2018-07-04 05:58] LABS: ALBUMIN 2.5 g/dL (3.4-5.0); ALKALINE PHOSPHATASE 126 U/L (46-116); BILIRUBIN - TOTAL 1.15 mg/dL (0.2-1.3); CALC OSMOLALITY 264 mosm/kg (275-300); CALCIUM 8.6 mg/dL (8.5-10.1); CARBON DIOXIDE 26.1 mmol/L (21.0-32.0); CHLORIDE - SERUM 103 mmol/L (98-107); CREATININE - SERUM 0.9 mg/dL (0.6-1.3); GLUCOSE 85 mg/dL (74-106); POTASSIUM - SERUM 3.7 mmol/L (3.5-5.1); PROTEIN - SERUM 5.8 g/dL (6.4-8.2); SODIUM 134 mmol/L (136-145); UREA NITROGEN 7 mg/dL (7-18); eGFR NON AFRICAN AMERICAN 89 mL/min (90-120)
[2018-07-04 06:00] LABS: ALT (SGPT) 5 U/L (10-68)
[2018-07-04 09:20] VITALS: BP 136/97
[2018-07-04 14:08] VITALS: BP 121/54
[2018-07-04 20:00] VITALS: BP 176/77
[2018-07-05] VITALS (7 sets, daily range): BP systolic 133–165; BP diastolic 59–90
[2018-07-05 05:54] LABS: CALC OSMOLALITY 261 mosm/kg (275-300); CALCIUM 8.6 mg/dL (8.5-10.1); CHLORIDE - SERUM 100 mmol/L (98-107); GLUCOSE 94 mg/dL (74-106); MAGNESIUM - SERUM 1.7 mg/dL (1.8-2.4); POTASSIUM - SERUM 3.4 mmol/L (3.5-5.1); SODIUM 131 mmol/L (136-145); eGFR NON AFRICAN AMERICAN 78 mL/min (90-120)
[2018-07-05 06:11] LABS: UREA NITROGEN 9 mg/dL (7-18)
[2018-07-05 06:20] LABS: BASOPHILS 0.4 % (0-2); EOSINOPHILS 1.1 % (0-7); HEMATOCRIT 26.3 % (42.0-54.0); HEMOGLOBIN 8.9 g/dL (13.5-17.5); IMMATURE GRANULOCYTES 0.2 % (0-5); LYMPHOCYTES 11.1 % (15-50); MCH 28.3 pg (26.0-34.0); MCHC 33.8 g/dL (31.0-37.0); MCV 83.5 fL (80.0-100.0); MONOCYTES 15.2 % (2-11); PLATELET COUNT 201 10x3/uL (130-400); RBC 3.15 10x6/uL (4.20-6.10); RDW 14.4 % (11.5-14.5); WBC 4.6 10x3/uL (4.8-10.8)
[2018-07-05 12:11] LABS: MAGNESIUM - SERUM 1.7 mg/dL (1.8-2.4); POTASSIUM - SERUM 3.7 mmol/L (3.5-5.1)
[2018-07-06 04:54] VITALS: BP 157/81
[2018-07-06 05:52] LABS: BASOPHILS 0.2 % (0-2); EOSINOPHILS 0.8 % (0-7); HEMATOCRIT 25.3 % (42.0-54.0); HEMOGLOBIN 8.5 g/dL (13.5-17.5); IMMATURE GRANULOCYTES 0.2 % (0-5); LYMPHOCYTES 11.8 % (15-50); MCH 28.2 pg (26.0-34.0); MCHC 33.6 g/dL (31.0-37.0); MCV 84.1 fL (80.0-100.0); MEAN PLATELET VOLUME 8.8 fL (7.4-10.4); MONOCYTES 13.3 % (2-11); NEUTROPHILS 73.7 % (40-80); PLATELET COUNT 182 10x3/uL (130-400); RBC 3.01 10x6/uL (4.20-6.10); RDW 13.9 % (11.5-14.5); WBC 5.3 10x3/uL (4.8-10.8)
[2018-07-06 06:09] LABS: CALC OSMOLALITY 254 mosm/kg (275-300); CALCIUM 8.6 mg/dL (8.5-10.1); CARBON DIOXIDE 22.2 mmol/L (21.0-32.0); CHLORIDE - SERUM 99 mmol/L (98-107); GLUCOSE 118 mg/dL (74-106); MAGNESIUM - SERUM 1.8 mg/dL (1.8-2.4); POTASSIUM - SERUM 3.9 mmol/L (3.5-5.1); SODIUM 127 mmol/L (136-145); UREA NITROGEN 11 mg/dL (7-18); eGFR NON AFRICAN AMERICAN 78 mL/min (90-120)
[2018-07-06 08:28] VITALS: BP 140/68
[2018-07-06 12:09] VITALS: BP 132/60
[2018-07-06 15:31] VITALS: BP 142/68
[2018-07-06 21:47] VITALS: BP 187/97
[2018-07-07 06:13] VITALS: BP 181/95
[2018-07-07 06:32] LABS: BASOPHILS 0.2 % (0-2); EOSINOPHILS 0.5 % (0-7); HEMATOCRIT 24.5 % (42.0-54.0); HEMOGLOBIN 8.3 g/dL (13.5-17.5); LYMPHOCYTES 15.7 % (15-50); MCH 28.5 pg (26.0-34.0); MCHC 33.9 g/dL (31.0-37.0); MCV 84.2 fL (80.0-100.0); MONOCYTES 15.7 % (2-11); NEUTROPHILS 67.9 % (40-80); PLATELET COUNT 188 10x3/uL (130-400); RBC 2.91 10x6/uL (4.20-6.10); RDW 13.8 % (11.5-14.5); WBC 4.3 10x3/uL (4.8-10.8)
[2018-07-07 06:46] LABS: CALC OSMOLALITY 266 mosm/kg (275-300); CARBON DIOXIDE 24.5 mmol/L (21.0-32.0); CHLORIDE - SERUM 100 mmol/L (98-107); GLUCOSE 95 mg/dL (74-106); MAGNESIUM - SERUM 1.8 mg/dL (1.8-2.4); SODIUM 133 mmol/L (136-145); eGFR NON AFRICAN AMERICAN 78 mL/min (90-120)
[2018-07-07 06:47] LABS: UREA NITROGEN 14 mg/dL (7-18)
[2018-07-07 08:48] VITALS: BP 140/89
[2018-07-07 15:09] VITALS: Ht 180.3 cm; Wt 72.6 kg
[2018-07-07 15:26] VITALS: BP 176/95
[2018-07-07 18:46] LABS: INR 1.39 (0.85-1.17); PROTIME 16.5 SECONDS (11.6-15.0)
[2018-07-07 22:45] VITALS: BP 161/93
[2018-07-08 03:48] VITALS: BP 167/86
[2018-07-08 06:41] LABS: BASOPHILS 0.5 % (0-2); EOSINOPHILS 1.2 % (0-7); HEMATOCRIT 24.3 % (42.0-54.0); HEMOGLOBIN 8.3 g/dL (13.5-17.5); LYMPHOCYTES 11.7 % (15-50); MCH 29.1 pg (26.0-34.0); MCHC 34.2 g/dL (31.0-37.0); MCV 85.3 fL (80.0-100.0); MONOCYTES 14.9 % (2-11); NEUTROPHILS 71.7 % (40-80); PLATELET COUNT 188 10x3/uL (130-400); RBC 2.85 10x6/uL (4.20-6.10); RDW 13.9 % (11.5-14.5)
[2018-07-08 06:57] LABS: CALC OSMOLALITY 266 mosm/kg (275-300); CALCIUM 8.5 mg/dL (8.5-10.1); CARBON DIOXIDE 26.7 mmol/L (21.0-32.0); CHLORIDE - SERUM 100 mmol/L (98-107); GLUCOSE 84 mg/dL (74-106); MAGNESIUM - SERUM 1.9 mg/dL (1.8-2.4); POTASSIUM - SERUM 3.6 mmol/L (3.5-5.1); SODIUM 133 mmol/L (136-145); eGFR NON AFRICAN AMERICAN 78 mL/min (90-120)
[2018-07-08 07:03] LABS: UREA NITROGEN 19 mg/dL (7-18)
[2018-07-08 08:08] VITALS: BP 165/84
[2018-07-08 16:30] VITALS: BP 148/80
[2018-07-08 20:00] VITALS: BP 153/68
[2018-07-09 04:00] VITALS: BP 149/81
[2018-07-09 05:35] LABS: BASOPHILS 0.2 % (0-2); EOSINOPHILS 4.3 % (0-7); HEMATOCRIT 24.1 % (42.0-54.0); HEMOGLOBIN 8.2 g/dL (13.5-17.5); IMMATURE GRANULOCYTES 0.2 % (0-5); LYMPHOCYTES 17.2 % (15-50); MCH 28.5 pg (26.0-34.0); MCV 83.7 fL (80.0-100.0); MEAN PLATELET VOLUME 9.1 fL (7.4-10.4); MONOCYTES 12.5 % (2-11); NEUTROPHILS 65.6 % (40-80); PLATELET COUNT 217 10x3/uL (130-400); RBC 2.88 10x6/uL (4.20-6.10); RDW 13.5 % (11.5-14.5); WBC 4.6 10x3/uL (4.8-10.8)
[2018-07-09 05:36] LABS: CALC OSMOLALITY 265 mosm/kg (275-300); CALCIUM 8.2 mg/dL (8.5-10.1); CARBON DIOXIDE 28.4 mmol/L (21.0-32.0); CHLORIDE - SERUM 97 mmol/L (98-107); CREATININE - SERUM 0.9 mg/dL (0.6-1.3); GLUCOSE 91 mg/dL (74-106); MAGNESIUM - SERUM 1.7 mg/dL (1.8-2.4); POTASSIUM - SERUM 3.2 mmol/L (3.5-5.1); SODIUM 131 mmol/L (136-145); UREA NITROGEN 21 mg/dL (7-18); eGFR NON AFRICAN AMERICAN 89 mL/min (90-120)
[2018-07-09 09:39] VITALS: BP 131/67
[2018-07-09 12:48] VITALS: BP 153/75
[2018-07-09 16:31] LABS: ALBUMIN 2.4 g/dL (3.4-5.0); ANION GAP 6.4 mmol/L (8-16); BILIRUBIN - TOTAL 0.86 mg/dL (0.2-1.3); CALCIUM 8.3 mg/dL (8.5-10.1); CARBON DIOXIDE 30.9 mmol/L (21.0-32.0); CREATININE - SERUM 1.1 mg/dL (0.6-1.3); POTASSIUM - SERUM 3.3 mmol/L (3.5-5.1); PROTEIN - SERUM 5.7 g/dL (6.4-8.2)
[2018-07-09 16:48] VITALS: BP 155/65
[2018-07-09 20:00] VITALS: BP 158/69
[2018-07-10 04:00] VITALS: BP 146/86
[2018-07-10 07:36] LABS: BASOPHILS 0.4 % (0-2); EOSINOPHILS 5.1 % (0-7); HEMATOCRIT 25.2 % (42.0-54.0); HEMOGLOBIN 8.5 g/dL (13.5-17.5); LYMPHOCYTES 20.8 % (15-50); MCH 28.1 pg (26.0-34.0); MCHC 33.7 g/dL (31.0-37.0); MCV 83.4 fL (80.0-100.0); MEAN PLATELET VOLUME 8.9 fL (7.4-10.4); NEUTROPHILS 59.7 % (40-80); PLATELET COUNT 220 10x3/uL (130-400); RBC 3.02 10x6/uL (4.20-6.10); RDW 13.5 % (11.5-14.5); WBC 4.7 10x3/uL (4.8-10.8)
[2018-07-10 07:58] LABS: ALBUMIN 2.5 g/dL (3.4-5.0); ALKALINE PHOSPHATASE 130 U/L (46-116); BILIRUBIN - TOTAL 0.86 mg/dL (0.2-1.3); CALC OSMOLALITY 265 mosm/kg (275-300); CALCIUM 8.4 mg/dL (8.5-10.1); CHLORIDE - SERUM 97 mmol/L (98-107); CREATININE - SERUM 0.9 mg/dL (0.6-1.3); GLUCOSE 107 mg/dL (74-106); POTASSIUM - SERUM 3.3 mmol/L (3.5-5.1); PROTEIN - SERUM 5.9 g/dL (6.4-8.2); SODIUM 131 mmol/L (136-145); UREA NITROGEN 20 mg/dL (7-18); eGFR NON AFRICAN AMERICAN 89 mL/min (90-120)
[2018-07-10 07:59] LABS: ALT (SGPT) 11 U/L (10-68)
[2018-07-10 08:41] VITALS: BP 150/81
[2018-07-10 08:46] VITALS: BP 167/77
[2018-07-10 12:48] VITALS: BP 149/71
[2018-07-10 16:45] VITALS: BP 137/77
[2018-07-11 06:01] LABS: BASOPHILS 0.2 % (0-2); EOSINOPHILS 5.2 % (0-7); HEMATOCRIT 23.2 % (42.0-54.0); IMMATURE GRANULOCYTES 0.2 % (0-5); LYMPHOCYTES 16.8 % (15-50); MCH 28.6 pg (26.0-34.0); MCHC 34.5 g/dL (31.0-37.0); MCV 82.9 fL (80.0-100.0); MEAN PLATELET VOLUME 8.9 fL (7.4-10.4); MONOCYTES 15.9 % (2-11); NEUTROPHILS 61.7 % (40-80); PLATELET COUNT 202 10x3/uL (130-400); RDW 13.4 % (11.5-14.5); WBC 4.2 10x3/uL (4.8-10.8)
[2018-07-11 06:18] VITALS: BP 161/69
[2018-07-11 06:33] LABS: ALBUMIN 2.4 g/dL (3.4-5.0); ALKALINE PHOSPHATASE 125 U/L (46-116); BILIRUBIN - TOTAL 0.91 mg/dL (0.2-1.3); CALC OSMOLALITY 264 mosm/kg (275-300); CALCIUM 8.5 mg/dL (8.5-10.1); CARBON DIOXIDE 31.1 mmol/L (21.0-32.0); CHLORIDE - SERUM 96 mmol/L (98-107); CREATININE - SERUM 0.9 mg/dL (0.6-1.3); GLUCOSE 95 mg/dL (74-106); POTASSIUM - SERUM 3.7 mmol/L (3.5-5.1); PROTEIN - SERUM 5.6 g/dL (6.4-8.2); SODIUM 131 mmol/L (136-145); UREA NITROGEN 18 mg/dL (7-18); eGFR NON AFRICAN AMERICAN 89 mL/min (90-120)
[2018-07-11 06:39] LABS: ALT (SGPT) 6 U/L (10-68)
[2018-07-11 08:06] VITALS: BP 141/74
[2018-07-11 12:00] VITALS: BP 131/73
[2018-07-11 18:19] VITALS: BP 145/83
[2018-07-11 21:45] VITALS: BP 153/82
[2018-07-12 05:09] VITALS: BP 155/59
[2018-07-12 08:14] VITALS: BP 142/93
[2018-07-12 11:12] LABS: BASOPHILS 0.5 % (0-2); EOSINOPHILS 3.6 % (0-7); HEMATOCRIT 24.2 % (42.0-54.0); HEMOGLOBIN 8.2 g/dL (13.5-17.5); MCH 28.6 pg (26.0-34.0); MCHC 33.9 g/dL (31.0-37.0); MCV 84.3 fL (80.0-100.0); MEAN PLATELET VOLUME 8.9 fL (7.4-10.4); MONOCYTES 14.8 % (2-11); NEUTROPHILS 64.1 % (40-80); PLATELET COUNT 171 10x3/uL (130-400); RBC 2.87 10x6/uL (4.20-6.10); RDW 13.5 % (11.5-14.5); WBC 3.9 10x3/uL (4.8-10.8)
[2018-07-12 11:56] VITALS: BP 144/69
[2018-07-12] MEDS ORDERED: VANCOMYCIN250 MG/51 PO ×2 (12:21→12:31)
[2018-07-12] MEDS ORDERED: PEPCID PO (12:23)
[2018-07-12] MEDS ORDERED: SINEMET 25-2501 EACH PO (15:49)
== END 2018-07-12 16:39 | DRG 371 ==
LOC: D.ER 15:33 → D.EDHOLD 21:29 → D.MS 21:29
PROVIDERS: Family Medicine; Internal Medicine Gastroenterology; Internal Medicine Nephrology
PROC: 05HC33Z Insertion of Infusion Device into Left Basilic Vein, Percutaneous Approach (ICD-10-PCS; principal; 2018-06-25)
PROC: B54NZZA Ultrasonography of Left Upper Extremity Veins, Guidance (ICD-10-PCS; 2018-06-25)
DX: A04.72 Enterocolitis due to Clostridium difficile, not specified as recurrent (principal); E43 Unspecified severe protein-calorie malnutrition; E87.1 Hypo-osmolality and hyponatremia; N39.0 Urinary tract infection, site not specified; N17.9 Acute kidney failure, unspecified; Z68.1 Body mass index [BMI] 19.9 or less, adult; K56.7 Ileus, unspecified; G72.89 Other specified myopathies; E11.9 Type 2 diabetes mellitus without complications; I25.10 Atherosclerotic heart disease of native coronary artery without angina pectoris; Z95.5 Presence of coronary angioplasty implant and graft; Z95.0 Presence of cardiac pacemaker; K21.9 Gastro-esophageal reflux disease without esophagitis; G89.29 Other chronic pain; M54.9 Dorsalgia, unspecified; G20 Parkinson's disease; N28.1 Cyst of kidney, acquired; B96.5 Pseudomonas (aeruginosa) (mallei) (pseudomallei) as the cause of diseases classified elsewhere; B96.81 Helicobacter pylori [H. pylori] as the cause of diseases classified elsewhere; D63.8 Anemia in other chronic diseases classified elsewhere; I10 Essential (primary) hypertension; E87.6 Hypokalemia; B37.9 Candidiasis, unspecified; K74.60 Unspecified cirrhosis of liver; K76.89 Other specified diseases of liver

== ENCOUNTER 2018-07-15 23:34 | Inpatient (IN) | payer MEDICARE, OTHER ==
[~2018-07-15] VITALS: Ht 180.3 cm; Wt 94.8 kg
--- NOTE | ~2018-07-15 | MORECARE ---
CASE MANAGEMENT DISCHARGE SUMMARY PATIENT: ZARINA ANN UNIT: [id number] ADM DATE: 07/16/18 AGE: 68 : 48 SEX: M ROOM/BED: D.2240 AUTHOR: MANUEL OWENS PHYSICIAN: REFERRING PHYSICIAN: MAIKEL WALTERS MD DATE OF SERVICE: 07/19/18 Discharge Plan Patient Name: ZARINA ANN Facility: [facility]:[place] : 1950 Planned Disposition: [facility] Facility Anticipated Discharge Date: 07/18/18 Discharge Date: 07/18/2018 Expected LOS: 2 Initial Reviewer: [email or web address] Initial Review Date: 07/18/2018 Generated: 07/19/18 5:59 pm Comments DCP- Discharge Planning Updated by [email or web address]: Gudelia Vargas on 07/18/18 10:[address] Patient Name: ZARINA ANN Admission Status: ER Accout number: [id number] Admission Date: 07-16-2018 : 1950 Admission Diagnosis:ANEMIA, UNSPECIFIED Attending: MAIKEL WALTERS Current LOS: 2 Anticipated DC Date: 07-18-2018 Planned Disposition: [facility] Facility Primary Insurance: MEDICARE A & B Discharge Planning Comments: Received order for discharge. He is returning to [facility] to a skilled (Medicare) bed today. I called and spoke to Sasha and faxed DC order, summary, meds. They will pick him up at 1:00. I notified [employer] school coordinator and to call report to [phone]. CM will continue to follow and assist with discharge planning/needs. Chain Offbearer: Gudelia Vargas Last DP export: 07/18/18 10:48 Patient Name: ZARINA ANN Page [phone] at 1700 All edits/amendments must be made on the electronic document DICTATION DATE: 07/19/181658 MEN'S LEATHER DRESS BELT MAKER: JONAS 07/19/181658 RPT#: [id number] DC DATE:07/18/18 STATUS: DIS IN [facility] [address] [id number] END OF REPORT
[~2018-07-15 23:34] MED LIST changes: +PEPCID PO; +PROTONIX40 MG PO; +SINEMET 25-2501 EACH PO
[2018-07-16 00:15] LABS: APPEARANCE HAZY (CLEAR); BILIRUBIN NEGATIVE (NEGATIVE); COLOR YELLOW (YELLOW); GLUCOSE NEGATIVE (NEGATIVE); KETONE NEGATIVE (NEGATIVE); NITRITE NEGATIVE (NEGATIVE); PROTEIN 3+ mg/dL (NEGATIVE); UROBILINOGEN NORMAL (NORMAL)
[2018-07-16 00:16] LABS: BACTERIA MODERATE /hpf (NONE SEEN); EPITHELIAL CELLS 0-5 /hpf (0-5); RED CELLS - URINE 0-5 /hpf (0-5)
[2018-07-16 00:17] LABS: ALBUMIN 2.8 g/dL (3.4-5.0); ANION GAP 10.4 mmol/L (8-16); BILIRUBIN - TOTAL 0.98 mg/dL (0.2-1.3); CALCIUM 8.8 mg/dL (8.5-10.1); CARBON DIOXIDE 28.4 mmol/L (21.0-32.0); CREATININE - SERUM 1.2 mg/dL (0.6-1.3); POTASSIUM - SERUM 3.8 mmol/L (3.5-5.1)
[2018-07-16 00:20] LABS: BASOPHILS 0 % (0-2); EOSINOPHILS 0.5 % (0-7); HEMATOCRIT 20.7 % (42.0-54.0); IMMATURE GRANULOCYTES 0.2 % (0-5); LYMPHOCYTES 13.8 % (15-50); MCH 28.5 pg (26.0-34.0); MCHC 34.3 g/dL (31.0-37.0); MCV 83.1 fL (80.0-100.0); MEAN PLATELET VOLUME 8.8 fL (7.4-10.4); MONOCYTES 14.7 % (2-11); NEUTROPHILS 70.8 % (40-80); RBC 2.49 10x6/uL (4.20-6.10); RDW 13.7 % (11.5-14.5); TROPONIN-I 0.016 ng/mL (0.000-0.060); WBC 4.4 10x3/uL (4.8-10.8)
[2018-07-16 00:23] LABS: HEMOGLOBIN 7.1 g/dL (13.5-17.5); INR 1.36 (0.85-1.17); PROTIME 16.3 SECONDS (11.6-15.0)
[2018-07-16 00:24] LABS: PLATELET COUNT 220 10x3/uL (130-400)
[2018-07-16 04:23] VITALS: BMI 29.2
[2018-07-16] MEDS ORDERED: LIBRIUM5 MG PO (08:04)
[2018-07-16 08:58] LABS: BASOPHILS 0.4 % (0-2); EOSINOPHILS 0.9 % (0-7); LYMPHOCYTES 11.8 % (15-50); MCH 28.4 pg (26.0-34.0); MCV 83.7 fL (80.0-100.0); MONOCYTES 12.4 % (2-11); NEUTROPHILS 74.5 % (40-80); PLATELET COUNT 217 10x3/uL (130-400); RDW 13.9 % (11.5-14.5); WBC 5.3 10x3/uL (4.8-10.8)
[2018-07-16 09:03] LABS: HEMATOCRIT 25.6 % (42.0-54.0); HEMOGLOBIN 8.7 g/dL (13.5-17.5); RBC 3.06 10x6/uL (4.20-6.10)
[2018-07-16 09:15] LABS: ANION GAP 7.2 mmol/L (8-16); CALCIUM 8.6 mg/dL (8.5-10.1); CARBON DIOXIDE 30.5 mmol/L (21.0-32.0); CREATININE - SERUM 1.2 mg/dL (0.6-1.3); POTASSIUM - SERUM 3.7 mmol/L (3.5-5.1)
[2018-07-16 09:44] VITALS: BP 174/56
[2018-07-16 10:51] VITALS: BMI 29.1
[2018-07-16 14:44] VITALS: BP 146/80
[2018-07-16 21:20] VITALS: BP 171/96
[2018-07-17 05:57] LABS: BASOPHILS 0.2 % (0-2); EOSINOPHILS 1.5 % (0-7); HEMATOCRIT 25.3 % (42.0-54.0); HEMOGLOBIN 8.6 g/dL (13.5-17.5); IMMATURE GRANULOCYTES 0.2 % (0-5); MCH 28.4 pg (26.0-34.0); MCV 83.5 fL (80.0-100.0); MEAN PLATELET VOLUME 8.8 fL (7.4-10.4); NEUTROPHILS 70.1 % (40-80); PLATELET COUNT 231 10x3/uL (130-400); RBC 3.03 10x6/uL (4.20-6.10); RDW 14.1 % (11.5-14.5); WBC 6.6 10x3/uL (4.8-10.8)
[2018-07-17 06:26] VITALS: BP 154/85
[2018-07-17 06:27] LABS: ALBUMIN 2.8 g/dL (3.4-5.0); ANION GAP 9.4 mmol/L (8-16); BILIRUBIN - TOTAL 1.53 mg/dL (0.2-1.3); CALCIUM 8.7 mg/dL (8.5-10.1); CARBON DIOXIDE 29.1 mmol/L (21.0-32.0); CREATININE - SERUM 1.1 mg/dL (0.6-1.3); POTASSIUM - SERUM 3.5 mmol/L (3.5-5.1)
[2018-07-17 09:19] VITALS: BP 146/97
[2018-07-17 11:36] VITALS: BP 132/93
[2018-07-17 14:21] VITALS: Ht 180.3 cm; Wt 94.8 kg
[2018-07-17 15:30] VITALS: BP 106/62
[2018-07-17 20:00] VITALS: BP 135/79
[2018-07-18 05:28] VITALS: BP 125/77
[2018-07-18 06:02] LABS: BASOPHILS 0.2 % (0-2); EOSINOPHILS 2.7 % (0-7); HEMATOCRIT 26.3 % (42.0-54.0); HEMOGLOBIN 8.9 g/dL (13.5-17.5); IMMATURE GRANULOCYTES 0.3 % (0-5); MCH 28.4 pg (26.0-34.0); MCHC 33.8 g/dL (31.0-37.0); MEAN PLATELET VOLUME 9.2 fL (7.4-10.4); MONOCYTES 10.4 % (2-11); NEUTROPHILS 65.4 % (40-80); PLATELET COUNT 270 10x3/uL (130-400); RBC 3.13 10x6/uL (4.20-6.10); WBC 6.3 10x3/uL (4.8-10.8)
[2018-07-18 06:25] LABS: ALBUMIN 2.8 g/dL (3.4-5.0); ALKALINE PHOSPHATASE 117 U/L (46-116); ALT (SGPT) 5 U/L (10-68); BILIRUBIN - TOTAL 1.43 mg/dL (0.2-1.3); CALC OSMOLALITY 268 mosm/kg (275-300); CALCIUM 8.6 mg/dL (8.5-10.1); CARBON DIOXIDE 29.6 mmol/L (21.0-32.0); CHLORIDE - SERUM 98 mmol/L (98-107); GLUCOSE 80 mg/dL (74-106); POTASSIUM - SERUM 3.4 mmol/L (3.5-5.1); SODIUM 134 mmol/L (136-145); UREA NITROGEN 17 mg/dL (7-18); eGFR NON AFRICAN AMERICAN 78 mL/min (90-120)
[2018-07-18 10:20] VITALS: BP 138/68
== END 2018-07-18 15:22 | DRG 812 ==
LOC: D.ER 23:34 → D.MS 07-16 01:38
PROVIDERS: Family Medicine; Internal Medicine Nephrology
DX: D62 Acute posthemorrhagic anemia (principal); R10.31 Right lower quadrant pain; E11.9 Type 2 diabetes mellitus without complications; K21.9 Gastro-esophageal reflux disease without esophagitis; G20 Parkinson's disease; I25.10 Atherosclerotic heart disease of native coronary artery without angina pectoris; Z95.0 Presence of cardiac pacemaker

== ENCOUNTER 2018-07-22 14:15 | Emergency (ER) | payer MEDICARE, OTHER ==
[~2018-07-22] VITALS: Ht 180.3 cm; Wt 72.7 kg
[~2018-07-22 14:15] MED LIST changes: +LIBRIUM5 MG PO
[2018-07-22 14:17] VITALS: Ht 180.3 cm; Wt 72.7 kg
[2018-07-22 14:56] LABS: BASOPHILS 0.2 % (0-2); EOSINOPHILS 1.4 % (0-7); HEMATOCRIT 25.7 % (42.0-54.0); HEMOGLOBIN 8.7 g/dL (13.5-17.5); IMMATURE GRANULOCYTES 0.2 % (0-5); LYMPHOCYTES 12.5 % (15-50); MCH 28.7 pg (26.0-34.0); MCHC 33.9 g/dL (31.0-37.0); MCV 84.8 fL (80.0-100.0); MEAN PLATELET VOLUME 8.7 fL (7.4-10.4); MONOCYTES 10.1 % (2-11); NEUTROPHILS 75.6 % (40-80); PLATELET COUNT 254 10x3/uL (130-400); RBC 3.03 10x6/uL (4.20-6.10); RDW 13.9 % (11.5-14.5); WBC 5.8 10x3/uL (4.8-10.8)
[2018-07-22 15:21] LABS: ALBUMIN 3.1 g/dL (3.4-5.0); ANION GAP 8.8 mmol/L (8-16); BILIRUBIN - TOTAL 0.94 mg/dL (0.2-1.3); CARBON DIOXIDE 31.9 mmol/L (21.0-32.0); CREATININE - SERUM 1.2 mg/dL (0.6-1.3); POTASSIUM - SERUM 3.7 mmol/L (3.5-5.1); PROTEIN - SERUM 6.5 g/dL (6.4-8.2)
[2018-07-22] MEDS ORDERED: FLAGYL500 MG PO (17:29)
[2018-07-22] MEDS ORDERED: LEVAQUIN250 MG PO (17:29)
[2018-07-22 19:07] VITALS: BP 138/82
== END 2018-07-22 19:08 | disposition home or self-care (01) ==
LOC: D.ER 14:15
PROVIDERS: Emergency Medicine
DX: R10.9 Unspecified abdominal pain (principal); D64.9 Anemia, unspecified; R19.7 Diarrhea, unspecified; R11.10 Vomiting, unspecified; G20 Parkinson's disease; Z95.0 Presence of cardiac pacemaker; K21.9 Gastro-esophageal reflux disease without esophagitis

== ENCOUNTER 2018-07-24 10:30 | Emergency (ER) | payer MEDICARE, OTHER ==
[~2018-07-24] VITALS: Ht 180.3 cm; Wt 90.9 kg
[~2018-07-24 10:30] MED LIST changes: +LEVAQUIN250 MG PO
[2018-07-24 10:32] VITALS: Ht 180.3 cm; Wt 90.9 kg
[2018-07-24] MEDS ORDERED: CARAFATE1 G PO (10:45)
[2018-07-24] MEDS ORDERED: PEPCID AC20 MG PO (10:47)
[2018-07-24] MEDS ORDERED: FAMOTIDINE10 MG PO (10:47)
[2018-07-24 11:41] LABS: BASOPHILS 0.2 % (0-2); EOSINOPHILS 0.2 % (0-7); IMMATURE GRANULOCYTES 0.2 % (0-5); LYMPHOCYTES 8.2 % (15-50); MCH 28.1 pg (26.0-34.0); MCHC 33.3 g/dL (31.0-37.0); MCV 84.4 fL (80.0-100.0); MEAN PLATELET VOLUME 8.5 fL (7.4-10.4); MONOCYTES 3.8 % (2-11); NEUTROPHILS 87.4 % (40-80); PLATELET COUNT 215 10x3/uL (130-400); RDW 13.8 % (11.5-14.5); WBC 5.5 10x3/uL (4.8-10.8)
[2018-07-24 11:57] LABS: INR 1.33 (0.85-1.17)
[2018-07-24 12:00] LABS: ALBUMIN 3.1 g/dL (3.4-5.0); ALKALINE PHOSPHATASE 123 U/L (46-116); ALT (SGPT) 4 U/L (10-68); BILIRUBIN - TOTAL 1.38 mg/dL (0.2-1.3); CALC OSMOLALITY 272 mosm/kg (275-300); CALCIUM 9.2 mg/dL (8.5-10.1); CARBON DIOXIDE 30.9 mmol/L (21.0-32.0); CHLORIDE - SERUM 98 mmol/L (98-107); CREATININE - SERUM 1.5 mg/dL (0.6-1.3); GLUCOSE 143 mg/dL (74-106); POTASSIUM - SERUM 3.2 mmol/L (3.5-5.1); PROTEIN - SERUM 6.7 g/dL (6.4-8.2); SODIUM 135 mmol/L (136-145); UREA NITROGEN 15 mg/dL (7-18); eGFR NON AFRICAN AMERICAN 49 mL/min (90-120)
[2018-07-24 12:12] LABS: CKMB 0.7 U/L (0.0-3.6); CREATINE KINASE 17 UL (21-232); PRO BNP 4166 pg/mL (0-125); TROPONIN-I 0.028 ng/mL (0.000-0.060)
[2018-07-24] MEDS ORDERED: OXYCODONE-APAP1 TAB PO (12:14)
[2018-07-24 13:16] LABS: UDS - AMPHET NEGATIVE QUAL (NEGATIVE); UDS - BARB NEGATIVE QUAL (NEGATIVE); UDS - BENZO POSITIVE QUAL (NEGATIVE); UDS - COCAINE NEGATIVE QUAL (NEGATIVE); UDS - OPIATE POSITIVE QUAL (NEGATIVE); UDS - PCP NEGATIVE QUAL (NEGATIVE); UDS - THC NEGATIVE QUAL (NEGATIVE)
[2018-07-24 13:25] LABS: APPEARANCE HAZY (CLEAR); BILIRUBIN NEGATIVE (NEGATIVE); COLOR STRAW (YELLOW); GLUCOSE NEGATIVE (NEGATIVE); KETONE SMALL mg/dL (NEGATIVE); NITRITE NEGATIVE (NEGATIVE); PROTEIN 1+ mg/dL (NEGATIVE); RED CELLS - URINE 0-5 /hpf (0-5); UROBILINOGEN NORMAL (NORMAL); WHITE CELLS - URINE 0-5 /hpf (0-5)
[2018-07-24 13:26] LABS: BACTERIA MODERATE /hpf (NONE SEEN); EPITHELIAL CELLS OCC /hpf (0-5); GRANULAR CAST RARE /lpf (NONE SEEN); MUCUS <1+ /lpf (NONE SEEN)
[2018-07-24 13:30] VITALS: BP 156/88
== END 2018-07-24 16:17 | disposition other institution (70) ==
LOC: D.ER 10:30
PROVIDERS: Family Medicine
DX: G40.909 Epilepsy, unspecified, not intractable, without status epilepticus (principal); D64.9 Anemia, unspecified; N18.9 Chronic kidney disease, unspecified; E87.6 Hypokalemia; E87.1 Hypo-osmolality and hyponatremia; R41.0 Disorientation, unspecified; G20 Parkinson's disease; E11.9 Type 2 diabetes mellitus without complications; K21.9 Gastro-esophageal reflux disease without esophagitis